=== PATIENT | female | born 1970 | race American Indian/Alaskan Native ===

== ENCOUNTER 2016-04-14 05:46 | Inpatient (IN) | payer SELFPAY ==
[2016-04-14 07:00] LABS: Basophils % (Auto) 0.5 % (0.0-1.8); Eosinophils % (Auto) 0.4 % (0.0-4.3); Mean Corpuscular HGB Conc 32 % (30-34); Mean Corpuscular Hemoglobin 31 pg (28-32); Mean Corpuscular Volume 96 fl (79-97); Platelet Count 336 K/mm3 (140-440); Red Blood Count 4.26 M/mm3 (3.65-5.03); Red Cell Distribution Width 13.2 % (13.2-15.2); White Blood Count 11.6 K/mm3 (4.5-11.0)
[2016-04-14 07:12] LABS: Blood Urea Nitrogen 9 mg/dL (7-17); Calcium 9.8 mg/dL (8.4-10.2); Carbon Dioxide 19 mmol/L (22-30); Chloride 81.5 mmol/L (98-107); Potassium 3.4 mmol/L (3.6-5.0); Sodium 128 mmol/L (137-145)
[2016-04-14 07:27] LABS: Anion Gap 31 mmol/L
[2016-04-14 07:28] LABS: Glucose 768 mg/dL (65-100)
--- NOTE | 2016-04-14 08:50 | XRay Report ---
CHEST 2 VIEWS INDICATION: Chest pain, shortness of breath. COMPARISON: 08/27/2015 FINDINGS: PA and lateral chest radiographs somewhat limited due to patient's inability to raise arms higher, though again reveals stable cardiomediastinal silhouette, clear lungs, unremarkable bones and cholecystectomy clips. CONCLUSION: No acute disease in the chest, stable. Thank you for the opportunity to participate in this patient's care.
[2016-04-14] MEDS ORDERED: ZOFRAN IV ONE (09:18)
[2016-04-14] MEDS ORDERED: DILAUDID IV ONE ×3 (09:18→13:59)
[2016-04-14] MEDS ORDERED: NACL 0.9% 1000 ML 1,000 ML IV ONE ×2 (09:18→11:13)
--- NOTE | 2016-04-14 09:23 | Emergency Department Report ---
ED General Adult HPI - General Chief complaint: Dyspnea/Respdistress Stated complaint: CP/SOB Time Seen by Provider: 04/14/16 09:06 Source: patient Mode of arrival: Ambulatory Limitations: No Limitations - History of Present Illness Initial comments: 46-year-old female presents to the emergency department complaining of chest pain and shortness of breath beginning yesterday. Patient describes sharp midsternal pain that does not radiate. Pain has been constant. She reports associated lightheadedness, nausea, and vomiting. There are no other complaints. -: Gradual, days(s) (1) Location: chest Radiation: non-radiation Severity scale (0 -10): 10 Quality: sharp Consistency: constant Improves with: none Worsens with: none Associated Symptoms: nausea/vomiting, shortness of breath Treatments Prior to Arrival: none - Related Data Home Medications Medication Instructions Recorded Confirmed Last Taken Insulin NPH Hum/Reg Insulin Hm 30 unit SQ QHS 08/27/15 08/27/15 08/27/15 [HumuLIN 70-30 Vial] Insulin NPH Hum/Reg Insulin Hm 40 unit SQ QAM 08/27/15 08/27/15 08/27/15 [HumuLIN 70-30 Vial] Lisinopril [Zestril TAB] 40 mg PO QDAY 08/27/15 08/27/15 08/27/15 Vesnoid BID 08/27/15 08/27/15 Previous Rx's Medication Instructions Recorded Last Taken Type HYDROcodone/APAP 5-325 [[place] 1 each PO Q6HR PRN #10 tablet 08/27/15 Unknown Rx 5/325] Oxycodone HCl/Acetaminophen 1 each PO Q6HR PRN #14 tablet 01/26/16 Unknown Rx [Percocet 10/325 mg] amLODIPine [Norvasc] 5 mg PO DAILY #30 tab 01/26/16 Unknown Rx Allergies Allergy/AdvReac Type Severity Reaction Status Date / Time ibuprofen Allergy Shortness Verified 08/27/15 11:08 of Breath tramadol Allergy Shortness Verified 08/27/15 11:08 of Breath cefaclor [From Ceclor] AdvReac Rash Verified 08/27/15 11:08 ED Review of Systems ROS: Stated complaint: CP/SOB Other details as noted in HPI Comment: All other systems reviewed and negative Respiratory: shortness of breath Cardiovascular: chest pain Gastrointestinal: nausea, vomiting ED Past Medical Hx - Past Medical History Previous Medical History?: Yes Hx Hypertension: Yes Hx Diabetes: Yes Additional medical history: AML - Surgical History Past Surgical History?: Yes Hx Appendectomy: Yes - Family History Family history: no significant - Social History Smoking Status: Never Smoker Substance Use Type: None - Medications Home Medications: Home Medications Medication Instructions Recorded Confirmed Last Taken Type HYDROcodone/APAP 5-325 [[place] 1 each PO Q6HR PRN #10 tablet 08/27/15 Unknown Rx 5/325] Insulin NPH Hum/Reg Insulin Hm 30 unit SQ QHS 08/27/15 08/27/15 08/27/15 History [HumuLIN 70-30 Vial] Insulin NPH Hum/Reg Insulin Hm 40 unit SQ QAM 08/27/15 08/27/15 08/27/15 History [HumuLIN 70-30 Vial] Lisinopril [Zestril TAB] 40 mg PO QDAY 08/27/15 08/27/15 08/27/15 History Vesnoid BID 08/27/15 08/27/15 History Oxycodone HCl/Acetaminophen 1 each PO Q6HR PRN #14 tablet 01/26/16 Unknown Rx [Percocet 10/325 mg] amLODIPine [Norvasc] 5 mg PO DAILY #30 tab 01/26/16 Unknown Rx ED Physical Exam - General Limitations: No Limitations General appearance: alert, in no apparent distress - Head Head exam: Present: atraumatic, normocephalic - Eye Eye exam: Present: normal appearance, PERRL, EOMI - ENT ENT exam: Present: normal exam, normal orophraynx, mucous membranes moist - Neck Neck exam: Present: normal inspection, full ROM. Absent: tenderness - Respiratory Respiratory exam: Present: normal lung sounds bilaterally. Absent: respiratory distress - Cardiovascular Cardiovascular Exam: Present: normal rhythm, tachycardia, normal heart sounds - GI/Abdominal GI/Abdominal exam: Present: soft, normal bowel sounds. Absent: distended, tenderness - Extremities Exam Extremities exam: Present: normal inspection, full ROM. Absent: tenderness - Back Exam Back exam: Present: normal inspection, full ROM. Absent: tenderness - Neurological Exam Neurological exam: Present: alert, oriented X3. Absent: motor sensory deficit - Skin Skin exam: Present: warm, dry, intact ED Course Vital Signs 04/14/16 04/14/16 04/14/16 05:57 09:08 09:14 Temperature 98.3 F 98.5 F Pulse Rate 103 H 102 H Respiratory 22 20 Rate Blood Pressure 125/82 Blood Pressure 151/101 [Right] O2 Sat by Pulse 99 100 100 Oximetry 04/14/16 04/14/16 04/14/16 09:15 10:00 10:21 Temperature Pulse Rate Respiratory 18 Rate Blood Pressure 153/92 135/94 Blood Pressure [Right] O2 Sat by Pulse 99 98 Oximetry ED Medical Decision Making - Lab Data Result diagrams: 04/14/16 06:38 04/14/16 06:38 - EKG Data -: EKG Interpreted by Ks EKG shows normal: sinus rhythm, axis, intervals Rate: normal - EKG Data When compared to previous EKG there are: no significant change Interpretation: unchanged when compared t (01/26/2016), nonspecific ST-T wave vega, LVH - Radiology Data Radiology results: report reviewed Chest x-ray shows no acute cardiopulmonary abnormality. - Medical Decision Making Lab and imaging results reviewed and discussed with the patient. Patient is being started on IV insulin drip for DKA. Patient is to be admitted by the hospitalist. - Differential Diagnosis ACS, chest wall pain, dehydration, electrolyte abnormality Critical care attestation.: If time is entered above; I have spent that time in minutes in the direct care of this critically ill patient, excluding procedure time. ED Disposition Clinical Impression: DKA (diabetic ketoacidosis) Qualifiers: Diabetes mellitus type: type 2 Diabetes mellitus complication detail: without coma Qualified Code(s): E13.10 - Other specified diabetes mellitus with ketoacidosis without coma Disposition: OP ADMITTED IP TO THIS HOSP Is pt being admited?: Yes Condition: Stable Instructions: Diabetic Ketoacidosis (ED) Time of Disposition: 11:16
[2016-04-14 09:46] LABS: Bilirubin,Urine NEG (Negative); Blood,Urine LG (Negative); Ketones,Urine 80 mg/dL (Negative); Leukocyte Esterase,Urine NEG (Negative); Mucus,Urine FEW /HPF; Nitrite,Urine NEG (Negative); Protein,Urine <15 mg/dL mg/dL (Negative); Urobilinogen,Urine < 2.0 mg/dL (<2.0)
[2016-04-14] MEDS ORDERED: D50W (25GM) IV PRN ×2 (11:13→21:02)
--- NOTE | 2016-04-14 11:40 | Admit Criteria Form ---
Admission Criteria Documentation: DIABETES Clinical Indications for Admission to Inpatient Care (Place 'X' for any and all applicable criteria): Admission is indicated by presence of ALL (if I & II) or ANY ONE (if III or IV) of the following (1)(2)(3)(4): [X ]I. Diabetes is uncontrolled as indicated by ANY ONE of the following: [X ]a) Diabetic ketoacidosis as indicated by ALL of the following (8): [X ]i) Hyperglycemia (eg, plasma glucose greater than 200 mg /dL (11.1 mmol/L)) [ X]ii) Acidosis (eg, arterial pH less than 7.30, serum bicarbonate level less than 15 mEq/L (mmol/L)) [X ]iii) Moderate ketonuria or ketonemia [ ]b) Hyperglycemic hyperosmolar state as indicated by ALL of the following(9)(10): [ ]i) Neurologic dysfunction (eg, stupor, coma, hemiparesis , seizure)(13) [ ]ii) Plasma glucose greater than 600 mg/dL (33.3 mmol/L) [ ]iii) Serum osmolality greater than 320 mOsm/kg (mmol/kg) [ X]c) Severe signs or symptoms secondary to hyperglycemia indicated by ANY ONE of the following: [ ]i) Altered mental status(10) [ ]ii) Significant hypovolemia or dehydration [ ]iii) Intractable nausea or vomiting [ ]iv) Unexplained fever or severe infection [X]v) Severe electrolyte abnormality (eg, hypokalemia, hyperkalemia, hypernatremia) [X ]II. Management at other levels of care (Also use Diabetes: Observation Care as appropriate) is not feasible because of ANY ONE of the following: [ X]a) Condition was not adequately corrected with treatment at other levels of care. [ ]b) Treatment at other levels of care is not appropriate because of condition severity (eg, hyperosmolar coma). [ ]III. Contraindications and/or Inappropriate clinical situations for Observational Care in patients with Diabetes, when ANY ONE of the following is required: [ ]a) Patient require specific diagnostic workup or therapeutic intervention 22 [ ]b) Patient with abnormal vital signs or altered mental status 23 [ ]IV. General contraindications and/or Inappropriate clinical situations for Observational Care in patients with Diabetes, when ANY ONE of the following is required: [ ]a) Prediction of prolongation of LOS based on ANY ONE of the following may be considered as a contraindication for observational care 2, 3, 4, 5, 6, 7, 8, 9, 10, 11 [ ]i) Age > 65 yrs. [ ]ii) Patient arriving by ambulance [ ]iii) Patient with high acuity [ ]iv) Patient requiring vital sign monitoring [ ]v) Patient on IV medication [ ]b) Systolic blood pressures 180mmHg 3,12 [ ]c) Patient with altered mental status including delirium and other alteration of consciousness, (3) [ ]d) Patient whose discharge disposition will be to a longterm home or rehabilitation home should not be managed in Emergency Department Observation Unit. CMS rule requires 3 days hospital stay before such placement.3,13 [ ]e) Patient with failure to thrive due to broad array of etiologies 3,16,17 [ ]f) Inability to ambulate 3,14 Extended stay beyond goal length of stay may be needed for(3)(20): [ ]a) Treatment of precipitating causes [ ]b) Development of hypoglycemia [ ]c) Complications of treatment [ ]d) Complications of decompensated diabetes (eg, acute gastric dilatation, persistent metabolic or neurologic derangement) [ ]e) Active Comorbidities [ ]f) Older patients( 65 years or older) The original [facility] content created by [employer] has been revised. The portions of the content which have been revised are identified through the use of italic text or in bold,and [email or web address] has neither reviewed nor approved the modified material. All other unmodified content is copyright [email or web address]. Please see references footnoted in the original [facility] edition 2016 Admission Criteria Met: Yes
--- NOTE | 2016-04-14 11:57 | History and Physical Report ---
History of Present Illness Date of examination: 04/14/16 Date of admission: 04/14/16 Chief complaint: chest pain, epigastric pain, nausea,vomiting History of present illness: Pt is 46nyo presented with chest pain, epigastric pain, nausea, vomiting. Found to have DKA Medications and Allergies Allergies Allergy/AdvReac Type Severity Reaction Status Date / Time ibuprofen Allergy Shortness Verified 08/27/15 11:08 of Breath tramadol Allergy Shortness Verified 08/27/15 11:08 of Breath cefaclor [From Ceclor] AdvReac Rash Verified 08/27/15 11:08 Home Medications Medication Instructions Recorded Confirmed Last Taken Type Insulin NPH Hum/Reg Insulin Hm 30 unit SQ QHS 08/27/15 04/14/16 08/27/15 History [HumuLIN 70-30 Vial] Insulin NPH Hum/Reg Insulin Hm 40 unit SQ QAM 08/27/15 04/14/16 08/27/15 History [HumuLIN 70-30 Vial] Lisinopril [Zestril TAB] 40 mg PO BID 08/27/15 04/14/16 08/27/15 History Vesnoid BID 08/27/15 08/27/15 History Oxycodone HCl/Acetaminophen 1 each PO Q6HR PRN #14 tablet 01/26/16 04/14/16 Unknown Rx [Percocet 10/325 mg] amLODIPine [Norvasc] 5 mg PO DAILY #30 tab 01/26/16 04/14/16 Unknown Rx Active Meds: Active Medications Dextrose (D50w (25gm)) 0 ml IV PRN PRN PRN Reason: Hypoglycemia Insulin Human Regular 100 (units/ Sodium Chloride) 100 mls @ 1 mls/hr IV TITR YONI; 1 UNITS/HR PRN Reason: Protocol Sodium Chloride (Nacl 0.9% 1000 Ml) 1,000 mls @ 999 mls/hr IV ONCE ONE Stop: 04/14/16 12:13 Last Admin: 04/14/16 11:40 Dose: 999 mls/hr Exam - Constitutional Vitals: Temp Pulse Resp BP Pulse Ox 98.5 F 102 H 18 135/94 98 04/14/16 09:14 04/14/16 09:14 04/14/16 10:21 04/14/16 10:00 04/14/16 10:21 Results - Labs CBC & Chem 7: 04/14/16 06:38 04/14/16 18:02 Labs: Abnormal lab results 04/14/16 04/14/16 04/14/16 Range/Units 06:38 06:38 09:11 WBC 11.6 H (4.5-11.0) K/mm3 Sodium 128 L (137-145) mmol/L Potassium 3.4 L (3.6-5.0) mmol/L Chloride 81.5 L (98-107) mmol/L Carbon Dioxide 19 L (22-30) mmol/L Glucose 768 H* (65-100) mg/dL Ketones 58.9 H (0.2-2.8) mg/dL Assessment and Plan DKA. Admit to ICU. Insulin drip, iv fluids Chest pain, atypical. cardiologyy consulted
[2016-04-14] MEDS ORDERED: NovoLIN R 100 UNITS in NACL 0.9% 99 ML IV SCH (12:00)
[2016-04-14 12:15] LABS: Magnesium 1.9 mg/dL (1.7-2.3); Phosphorous 2.4 mg/dL (2.5-4.5)
[2016-04-14 14:07] LABS: Blood Urea Nitrogen 8 mg/dL (7-17); Calcium 9.8 mg/dL (8.4-10.2); Carbon Dioxide 18 mmol/L (22-30); Sodium 132 mmol/L (137-145)
[2016-04-14 14:08] LABS: Anion Gap 30 mmol/L; Glucose 501 mg/dL (65-100)
[2016-04-14 14:10] LABS: Potassium 2.9 mmol/L (3.6-5.0)
[2016-04-14] MEDS ORDERED: SODIUM PHOSPHATE 30 MMOL in NACL 0.9% 500 ML 500 ML IV ONE (14:10)
--- NOTE | 2016-04-14 14:49 | Consultation ---
History of Present Illness Consult date: 04/14/16 Requesting physician: CHAD LINCOLN Consult reason: chest pain History of present illness: The patient is a 46 year old female who presented with chest pain ongoing for the past 3 days. She states the pain has been constant and describes it as a sharp pain as well as tightness. Associated with shortness of breath, palpitations, nausea, vomiting, diaphoresis and headache. Upon presentation to the ER, she was found to be in DKA with a blood glucose of 768. Troponin negative x 2. Cardiac PET done 02/2016 showed was negative for reversible ischemia. Echo done 02/2016 showed EF 60-65%. Past History Past Medical History: diabetes, hypertension, other (leukemia s/p chemo) Past Surgical History: appendectomy, cholecystectomy, hernia repair Social history: (3 children). denies: smoking, alcohol abuse, prescription drug abuse, IV drug use Family history: no significant family history Medications and Allergies Allergies Allergy/AdvReac Type Severity Reaction Status Date / Time ibuprofen Allergy Shortness Verified 08/27/15 11:08 of Breath tramadol Allergy Shortness Verified 08/27/15 11:08 of Breath cefaclor [From Ceclor] AdvReac Rash Verified 08/27/15 11:08 Home Medications Medication Instructions Recorded Confirmed Last Taken Type Insulin NPH Hum/Reg Insulin Hm 30 unit SQ QHS 08/27/15 04/14/16 08/27/15 History [HumuLIN 70-30 Vial] Insulin NPH Hum/Reg Insulin Hm 40 unit SQ QAM 08/27/15 04/14/16 08/27/15 History [HumuLIN 70-30 Vial] Lisinopril [Zestril TAB] 40 mg PO BID 08/27/15 04/14/16 08/27/15 History Vesnoid BID 08/27/15 08/27/15 History Oxycodone HCl/Acetaminophen 1 each PO Q6HR PRN #14 tablet 01/26/16 04/14/16 Unknown Rx [Percocet 10/325 mg] amLODIPine [Norvasc] 5 mg PO DAILY #30 tab 01/26/16 04/14/16 Unknown Rx Active Meds: Active Medications Dextrose (D50w (25gm)) 0 ml IV PRN PRN PRN Reason: Hypoglycemia Insulin Human Regular 100 (units/ Sodium Chloride) 100 mls @ 1 mls/hr IV TITR YONI; 1 UNITS/HR PRN Reason: Protocol Last Titration: 04/14/16 14:08 Dose: 5 units/hr Sodium Phosphate 30 mmol/ (Sodium Chloride) 510 mls @ 125 mls/hr IV ONCE ONE Stop: 04/14/16 18:14 Potassium Chloride/Sodium Chloride (Ns/Kcl 20meq) 1,000 mls @ 150 mls/hr IV DIRECT YONI Review of Systems Constitutional: no fever, no chills Ears, nose, mouth and throat: no nasal congestion, no nasal discharge, no sinus pressure Cardiovascular: chest pain, palpitations, shortness of breath Respiratory: shortness of breath, dyspnea on exertion, no wheezing Gastrointestinal: abdominal pain, nausea, vomiting Genitourinary Female: no dysuria, no urgency Musculoskeletal: no neck stiffness, no neck pain, no myalgias Integumentary: no rash, no pruritis Neurological: headaches, no parathesias, no numbness, no tingling Endocrine: no cold intolerance, no heat intolerance Hematologic/Lymphatic: no easy bruising, no easy bleeding Allergic/Immunologic: no urticaria, no wheezing Physical Examination Vital Signs Temp Pulse Resp BP Pulse Ox 98.3 F 103 H 22 125/82 99 04/14/16 05:57 04/14/16 05:57 04/14/16 05:57 04/14/16 05:57 04/14/16 05:57 General appearance: no acute distress HEENT: Positive: Normocephaly, Mucus Membranes Moist Neck: Positive: neck supple, trachea midline Cardiac: Positive: Reg Rate and Rhythm, S1/S2 Lungs: Positive: clear to auscultation Neuro: Positive: Grossly Intact Abdomen: Positive: Soft, Active Bowel Sounds, Tender (epigastic tenderness) Skin: Positive: Clear. Negative: Rash Musculoskeletal: other (reproducible anterior chest tenderness) Extremities: Present: normal. Absent: edema Results 04/14/16 06:38 04/14/16 15:50 Comprehensive Metabolic Panel 04/14/16 Range/Units 13:50 Sodium 132 L (137-145) mmol/L Potassium 2.9 L* (3.6-5.0) mmol/L Chloride 87.0 L (98-107) mmol/L Carbon Dioxide 18 L (22-30) mmol/L BUN 8 (7-17) mg/dL Creatinine 0.8 (0.7-1.2) mg/dL Glucose 501 H* (65-100) mg/dL Calcium 9.8 (8.4-10.2) mg/dL - Imaging and Cardiology Echo: report reviewed (02/2016: mild LVH, EF 60-65%, mild MR) EKG: image reviewed EKG interpretations - Telemetry EKG Rhythm: Sinus Rhythm - EKG Sinus rhythms and dysrhythmias: sinus rhythm Chamber hypertrophy or enlargement: left ventricular hypertro Repolarization changes or abnormalities: ST or T wave suggestive of ischemia Assessment and Plan Given atypical nature of chest pain and some reproducible component, as well as recent negative stress test, will give a trial of analgesics (pt. is allergic to NSAIDS). If chest pain persists despite that, we will consider invasive evaluation. - Patient Problems (1) Atypical chest pain Current Visit: Yes Status: Acute (2) DKA (diabetic ketoacidosis) Current Visit: Yes Status: Acute Qualifiers: Diabetes mellitus type: type 2 Diabetes mellitus complication detail: without coma Qualified Code(s): E13.10 - Other specified diabetes mellitus with ketoacidosis without coma (3) Hypertension Current Visit: Yes Status: Chronic
[2016-04-14] MEDS ORDERED: NS/KCL 20MEQ 1,000 ML IV SCH (15:00)
[2016-04-14] MEDS: D5W/0.45% NACL/KCL 20 MEQ 1,000 ML IV SCH (15:39)
[2016-04-14 16:26] LABS: Anion Gap 22 mmol/L; Blood Urea Nitrogen 7 mg/dL (7-17); Calcium 9.1 mg/dL (8.4-10.2); Carbon Dioxide 22 mmol/L (22-30); Chloride 95.7 mmol/L (98-107); Glucose 205 mg/dL (65-100); Sodium 137 mmol/L (137-145)
[2016-04-14 16:30] LABS: Potassium 2.5 mmol/L (3.6-5.0)
[2016-04-14] MEDS: KCL 10MEQ/100ML 100 ML IV SCH ×4 (16:51→21:54)
[2016-04-14] MEDS: ZOFRAN IV PRN (17:28)
[2016-04-14] MEDS: MORPHINE IV PRN ×2 (17:29→21:56)
[2016-04-14] MEDS: PEPCID IV SCH ×2 (17:30→21:53)
[2016-04-14] MEDS: TYLENOL PO SCH (17:30)
[2016-04-14 18:50] LABS: Anion Gap 23 mmol/L; BUN/Creatinine Ratio 11.66; Blood Urea Nitrogen 7 mg/dL (7-17); Calcium 8.7 mg/dL (8.4-10.2); Carbon Dioxide 22 mmol/L (22-30); Chloride 96.3 mmol/L (98-107); Glucose 185 mg/dL (65-100); Sodium 138 mmol/L (137-145)
[2016-04-14 18:55] LABS: Potassium 2.8 mmol/L (3.6-5.0)
[2016-04-14 21:32] LABS: Anion Gap 22 mmol/L; Blood Urea Nitrogen 6 mg/dL (7-17); Calcium 8.7 mg/dL (8.4-10.2); Carbon Dioxide 22 mmol/L (22-30); Chloride 95.4 mmol/L (98-107); Glucose 182 mg/dL (65-100); Sodium 136 mmol/L (137-145)
[2016-04-15] MEDS: D5W/0.45% NACL/KCL 20 MEQ 1,000 ML IV SCH (00:07)
[2016-04-15] MEDS: NOVOLOG SUB-Q SCH ×4 (00:24→18:06)
[2016-04-15] MEDS: ZOFRAN IV PRN ×4 (00:26→20:07)
[2016-04-15 05:03] LABS: Hemoglobin 12.1 gm/dl (10.1-14.3); Mean Corpuscular HGB Conc 33 % (30-34); Mean Corpuscular Hemoglobin 31 pg (28-32); Mean Corpuscular Volume 93 fl (79-97); Platelet Count 236 K/mm3 (140-440); Red Blood Count 3.97 M/mm3 (3.65-5.03); Red Cell Distribution Width 12.8 % (13.2-15.2); White Blood Count 8.8 K/mm3 (4.5-11.0)
[2016-04-15 05:34] LABS: Anion Gap 19 mmol/L; BUN/Creatinine Ratio 6.66; Blood Urea Nitrogen 4 mg/dL (7-17); Calcium 8.7 mg/dL (8.4-10.2); Carbon Dioxide 25 mmol/L (22-30); Chloride 94.1 mmol/L (98-107); Glucose 263 mg/dL (65-100); Potassium 3.2 mmol/L (3.6-5.0); Sodium 135 mmol/L (137-145)
[2016-04-15] MEDS: HEPARIN SUB-Q SCH ×4 (06:08→21:51)
[2016-04-15] MEDS: MORPHINE IV PRN ×4 (06:09→20:07)
--- NOTE | 2016-04-15 08:52 | Progress Note ---
Hospitalist Physical - Constitutional Vitals: Temp Pulse Resp BP Pulse Ox 98.4 F 87 18 138/90 98 04/15/16 08:00 04/15/16 04:12 04/14/16 20:00 04/14/16 13:30 04/15/16 08:24 General appearance: Present: no acute distress Results - Labs CBC & Chem 7: 04/15/16 04:37 04/15/16 04:37 Labs: Laboratory Last Values WBC 8.8 K/mm3 (4.5-11.0) 04/15/16 04:37 RBC 3.97 M/mm3 (3.65-5.03) 04/15/16 04:37 Hgb 12.1 gm/dl (10.1-14.3) 04/15/16 04:37 Hct 37.0 % (30.3-42.9) 04/15/16 04:37 MCV 93 fl (79-97) D 04/15/16 04:37 MCH 31 pg (28-32) 04/15/16 04:37 MCHC 33 % (30-34) 04/15/16 04:37 RDW 12.8 % (13.2-15.2) L 04/15/16 04:37 Plt Count 236 K/mm3 (140-440) 04/15/16 04:37 Lymph % (Auto) 26.8 % (13.4-35.0) 04/14/16 06:38 [place] % (Auto) 7.1 % (0.0-7.3) 04/14/16 06:38 Eos % (Auto) 0.4 % (0.0-4.3) 04/14/16 06:38 Baso % (Auto) 0.5 % (0.0-1.8) 04/14/16 06:38 Lymph # 3.1 K/mm3 (1.2-5.4) 04/14/16 06:38 [place] # 0.8 K/mm3 (0.0-0.8) 04/14/16 06:38 Eos # 0.0 K/mm3 (0.0-0.4) 04/14/16 06:38 Baso # 0.1 K/mm3 (0.0-0.1) 04/14/16 06:38 Seg Neutrophils % 65.2 % (40.0-70.0) 04/14/16 06:38 Seg Neutrophils # 7.5 K/mm3 (1.8-7.7) 04/14/16 06:38 VBG pH 7.369 (7.320-7.420) 04/14/16 09:11 Sodium 135 mmol/L (137-145) L 04/15/16 04:37 Potassium 3.2 mmol/L (3.6-5.0) L 04/15/16 04:37 Chloride 94.1 mmol/L (98-107) L 04/15/16 04:37 Carbon Dioxide 25 mmol/L (22-30) 04/15/16 04:37 Anion Gap 19 mmol/L 04/15/16 04:37 BUN 4 mg/dL (7-17) L 04/15/16 04:37 Creatinine 0.6 mg/dL (0.7-1.2) L 04/15/16 04:37 Estimated GFR > 60 ml/min 04/15/16 04:37 BUN/Creatinine Ratio 6.66 % 04/15/16 04:37 Glucose 263 mg/dL (65-100) H 04/15/16 04:37 POC Glucose 244 (70-105) H 04/15/16 07:58 Calcium 8.7 mg/dL (8.4-10.2) 04/15/16 04:37 Phosphorus 2.0 mg/dL (2.5-4.5) L 04/15/16 04:37 Magnesium 1.9 mg/dL (1.7-2.3) 04/14/16 11:50 Troponin T < 0.010 ng/mL (0.00-0.029) 04/14/16 11:50 Urine Color Straw (Yellow) 04/14/16 09:20 Urine Turbidity Clear (Clear) 04/14/16 09:20 Urine pH 6.0 (5.0-7.0) 04/14/16 09:20 Ur Specific [place] 1.028 (1.003-1.030) 04/14/16 09:20 Urine Protein <15 mg/dl mg/dL (Negative) 04/14/16 09:20 Urine Glucose (UA) >=500 mg/dL (Negative) 04/14/16 09:20 Urine Ketones 80 mg/dL (Negative) 04/14/16 09:20 Urine Blood Lg (Negative) 04/14/16 09:20 Urine Nitrite Neg (Negative) 04/14/16 09:20 Urine Bilirubin Neg (Negative) 04/14/16 09:20 Urine Urobilinogen < 2.0 mg/dL (<2.0) 04/14/16 09:20 Ur Leukocyte Esterase Neg (Negative) 04/14/16 09:20 Urine WBC (Auto) 6.0 /HPF (0.0-6.0) 04/14/16 09:20 Urine RBC (Auto) 108.0 /HPF (0.0-6.0) 04/14/16 09:20 U Epithel Cells (Auto) 1.0 /HPF (0-13.0) 04/14/16 09:20 Urine Mucus Few /HPF 04/14/16 09:20 Ketones 58.9 mg/dL (0.2-2.8) H 04/14/16 09:11
[2016-04-15] MEDS ORDERED: K-DUR PO ONE (09:00)
[2016-04-15] MEDS: TYLENOL PO SCH ×5 (09:06→22:01)
[2016-04-15] MEDS: NORVASC PO SCH (09:06)
[2016-04-15] MEDS: PEPCID PO SCH ×2 (09:06→21:50)
[2016-04-15] MEDS: ZESTRIL PO SCH (09:17)
--- NOTE | 2016-04-15 11:02 | Progress Note ---
Assessment and Plan Continue analgesics. Will optimize anti-hypertensive regimen. Stable cardiac status. - Patient Problems (1) Atypical chest pain Current Visit: Yes Status: Acute (2) DKA (diabetic ketoacidosis) Current Visit: Yes Status: Acute Qualifiers: Diabetes mellitus type: type 2 Diabetes mellitus complication detail: without coma Qualified Code(s): E13.10 - Other specified diabetes mellitus with ketoacidosis without coma (3) Hypertension Current Visit: Yes Status: Chronic Subjective Date of service: 04/15/16 Principal diagnosis: atypical chest pain, DKA Interval history: The patient is resting in bed. She feels better today. Still with some substernal chest pain which is reproducible. Objective Last Vital Signs Temp 98.4 F 04/15/16 08:00 Pulse 69 04/15/16 09:17 Resp 18 04/14/16 20:00 BP 154/96 04/15/16 09:17 Pulse Ox 98 04/15/16 08:24 - Physical Examination General: No Apparent Distress HEENT: Positive: Normocephaly, Mucus Membranes Moist Neck: Positive: neck supple, trachea midline Cardiac: Positive: Reg Rate and Rhythm, S1/S2 Lungs: Positive: clear to auscultation Neuro: Positive: Grossly Intact Abdomen: Positive: Soft, Active Bowel Sounds, Tender (epigastic tenderness) Skin: Positive: Clear. Negative: Rash Musculoskeletal: other (reproducible anterior chest tenderness) Extremities: Present: normal. Absent: edema - Labs and Meds CBC 04/15/16 Range/Units 04:37 WBC 8.8 (4.5-11.0) K/mm3 RBC 3.97 (3.65-5.03) M/mm3 Hgb 12.1 (10.1-14.3) gm/dl Hct 37.0 (30.3-42.9) % Plt Count 236 (140-440) K/mm3 Comprehensive Metabolic Panel 04/14/16 04/14/16 04/14/16 Range/Units 13:50 15:50 18:02 Sodium 132 L 137 138 (137-145) mmol/L Potassium 2.9 L* 2.5 L* 2.8 L* (3.6-5.0) mmol/L Chloride 87.0 L 95.7 L 96.3 L (98-107) mmol/L Carbon Dioxide 18 L 22 22 (22-30) mmol/L BUN 8 7 7 (7-17) mg/dL Creatinine 0.8 0.7 0.6 L (0.7-1.2) mg/dL Glucose 501 H* 205 H 185 H (65-100) mg/dL Calcium 9.8 9.1 8.7 (8.4-10.2) mg/dL 04/14/16 04/15/16 Range/Units 20:55 04:37 Sodium 136 L 135 L (137-145) mmol/L Potassium 3.0 L 3.2 L (3.6-5.0) mmol/L Chloride 95.4 L 94.1 L (98-107) mmol/L Carbon Dioxide 22 25 (22-30) mmol/L BUN 6 L 4 L (7-17) mg/dL Creatinine 0.6 L 0.6 L (0.7-1.2) mg/dL Glucose 182 H 263 H (65-100) mg/dL Calcium 8.7 8.7 (8.4-10.2) mg/dL - Imaging and Cardiology EKG: image reviewed Echo: report reviewed (02/2016: mild LVH, EF 60-65%, mild MR) - Telemetry EKG Rhythm: Sinus Rhythm - EKG Sinus rhythms and dysrhythmias: sinus rhythm Chamber hypertrophy or enlargement: left ventricular hypertro Repolarization changes or abnormalities: ST or T wave suggestive of ischemia
[2016-04-15] MEDS: KCL IV SCH (12:27)
[2016-04-15] MEDS: NS IV SCH (12:27)
[2016-04-15] MEDS ORDERED: SODIUM PHOSPHATE 45 MMOL in NACL 0.9% 500 ML 500 ML IV ONE (16:00)
[2016-04-15] MEDS ORDERED: NOVOLOG SUB-Q ONE (18:14)
[2016-04-15 21:22] LABS: Anion Gap 20 mmol/L; Blood Urea Nitrogen 3 mg/dL (7-17); Calcium 8.6 mg/dL (8.4-10.2); Carbon Dioxide 23 mmol/L (22-30); Chloride 99.5 mmol/L (98-107); Glucose 285 mg/dL (65-100); Sodium 138 mmol/L (137-145)
[2016-04-16] MEDS: ZOFRAN IV PRN ×3 (00:13→08:44)
[2016-04-16] MEDS: MORPHINE IV PRN ×3 (00:13→08:44)
[2016-04-16] MEDS: NOVOLOG SUB-Q SCH ×3 (00:14→13:38)
[2016-04-16] MEDS: NS IV SCH (05:15)
[2016-04-16] MEDS: KCL IV SCH (05:15)
[2016-04-16] MEDS: HEPARIN SUB-Q SCH ×2 (05:16→13:38)
[2016-04-16] MEDS: TYLENOL PO SCH ×2 (05:16→13:37)
[2016-04-16 06:40] LABS: Anion Gap 16 mmol/L; Blood Urea Nitrogen 3 mg/dL (7-17); Calcium 8.7 mg/dL (8.4-10.2); Carbon Dioxide 28 mmol/L (22-30); Chloride 103.2 mmol/L (98-107); Glucose 163 mg/dL (65-100); Phosphorous 4.1 mg/dL (2.5-4.5); Potassium 3.5 mmol/L (3.6-5.0); Sodium 144 mmol/L (137-145)
[2016-04-16 08:49] VITALS: BP 133/81
[2016-04-16] MEDS: ZESTRIL PO SCH (10:25)
[2016-04-16] MEDS: PEPCID PO SCH (10:25)
[2016-04-16] MEDS: NORVASC PO SCH (10:25)
--- NOTE | 2016-04-16 12:02 | Progress Note ---
Assessment and Plan Stable cardiac status. Continue current management. Follow up appointment with Dr. Faulkner in the [place] office on 04/28/16 at 1: 45 pm. - Patient Problems (1) Atypical chest pain Current Visit: Yes Status: Acute (2) DKA (diabetic ketoacidosis) Current Visit: Yes Status: Acute Qualifiers: Diabetes mellitus type: type 2 Diabetes mellitus complication detail: without coma Qualified Code(s): E13.10 - Other specified diabetes mellitus with ketoacidosis without coma (3) Hypertension Current Visit: Yes Status: Chronic Subjective Date of service: 04/16/16 Principal diagnosis: atypical chest pain, DKA Interval history: The patient is resting in bed. Chest pain better today. Sinus rhythm on the monitor. Objective Last Vital Signs Temp 97.6 F 04/16/16 08:48 Pulse 67 04/16/16 08:48 Resp 18 04/16/16 08:48 BP 133/81 04/16/16 08:48 Pulse Ox 100 04/16/16 08:48 - Physical Examination General: No Apparent Distress HEENT: Positive: Normocephaly, Mucus Membranes Moist Neck: Positive: neck supple, trachea midline Cardiac: Positive: Reg Rate and Rhythm, S1/S2 Lungs: Positive: clear to auscultation Neuro: Positive: Grossly Intact Abdomen: Positive: Soft, Active Bowel Sounds, Tender (epigastic tenderness) Skin: Positive: Clear. Negative: Rash Musculoskeletal: other (reproducible anterior chest tenderness) Extremities: Present: normal. Absent: edema - Labs and Meds Comprehensive Metabolic Panel 04/15/16 04/16/16 Range/Units 20:34 05:26 Sodium 138 144 (137-145) mmol/L Potassium 4.0 D 3.5 L (3.6-5.0) mmol/L Chloride 99.5 103.2 (98-107) mmol/L Carbon Dioxide 23 28 (22-30) mmol/L BUN 3 L 3 L (7-17) mg/dL Creatinine 0.5 L 0.5 L (0.7-1.2) mg/dL Glucose 285 H 163 H (65-100) mg/dL Calcium 8.6 8.7 (8.4-10.2) mg/dL - Imaging and Cardiology EKG: image reviewed Echo: report reviewed (02/2016: mild LVH, EF 60-65%, mild MR) - Telemetry EKG Rhythm: Sinus Rhythm - EKG Sinus rhythms and dysrhythmias: sinus rhythm Chamber hypertrophy or enlargement: left ventricular hypertro Repolarization changes or abnormalities: ST or T wave suggestive of ischemia
--- NOTE | 2016-04-16 14:27 | Discharge Summary ---
Providers - Providers Date of Admission: 04/14/16 11:17 Date of discharge: 04/16/16 Attending physician: CHAD LINCOLN 04/14/16 12:37 Consult to Physician [CONS] Routine Consulting Provider: [facility] FAULK[facility] Reason For Exam: chest pain Place consult to:: Dr. Faulkner Notified:: yes If yes, spoke with:: osmin Primary care physician: [employer] Hospitalization Condition: Fair Disposition: DISCHARGED TO HOME OR SELFCARE - Discharge Diagnoses (1) DKA (diabetic ketoacidosis) Status: Acute Qualifiers: Diabetes mellitus type: type 2 Diabetes mellitus complication detail: without coma Qualified Code(s): E13.10 - Other specified diabetes mellitus with ketoacidosis without coma (2) Atypical chest pain Status: Acute (3) Hypertensive urgency Status: Acute (4) GERD (gastroesophageal reflux disease) Status: Acute Core Measure Documentation - Palliative Care Palliative Care/ Comfort Measures: Not Applicable - Core Measures Any of the following diagnoses?: none Exam - Constitutional Vitals: Temp Pulse Resp BP Pulse Ox 97.6 F 67 18 133/81 100 04/16/16 08:48 04/16/16 08:48 04/16/16 08:48 04/16/16 08:48 04/16/16 08:48 Plan Activity: no restrictions Diet: low fat, low cholesterol, low salt, diabetic Additional Instructions: 1.Follow up with PCP in 1 week. 2.Follow up with Dr. Faulkner on 04/28/16 Follow up with: PRIMARY CARE, [Primary Care Provider] - 3-5 Days Prescriptions: Famotidine [Pepcid] 20 mg PO BID #60 tablet Insulin NPH Hum/Reg Insulin Hm [HumuLIN 70-30 Vial] 40 unit SQ BID #1 vial Oxycodone HCl/Acetaminophen [Percocet 10/325 mg] 1 each PO Q6HR PRN #14 tablet PRN Reason: Pain
== END 2016-04-16 16:00 | disposition home or self-care (01) | DRG 638 ==
LOC: ED 05:46 → CC1 11:17 → 4A 04-15 14:42
PROVIDERS: ADMIT Internal Medicine; ATTEND Internal Medicine
DX: E13.10 Other specified diabetes mellitus with ketoacidosis without coma (principal); C95.90 Leukemia, unspecified not having achieved remission; I10 Essential (primary) hypertension; Z90.89 Acquired absence of other organs; Z90.49 Acquired absence of other specified parts of digestive tract; Z98.890 Other specified postprocedural states; Z88.8 Allergy status to other drugs, medicaments and biological substances; Z88.1 Allergy status to other antibiotic agents; Z92.21 Personal history of antineoplastic chemotherapy; K21.9 Gastro-esophageal reflux disease without esophagitis
CPT/HCPCS: 36415; 71020; 80048; 81001; 82010; 82805; 82962; 83036; 83735; 84100; 84484; 85025; 85027; 93005; 93010; 96361; 96374; 96375; 96376; J1170; J1644; J1815; J2270; J2405; J3480; J7030; J7040

== ENCOUNTER 2017-03-18 18:30 | Emergency (ER) | payer OTHER ==
--- NOTE | 2017-03-18 22:50 | Emergency Department Report ---
ED ENT HPI - General Chief complaint: Earache Stated complaint: EAR PAIN Time Seen by Provider: 03/18/17 21:55 Source: patient Mode of arrival: Ambulatory Limitations: No Limitations - Related Data Home Medications Medication Instructions Recorded Confirmed Last Taken Insulin NPH Hum/Reg Insulin Hm 30 unit SQ QHS 08/27/15 04/14/16 08/27/15 [HumuLIN 70-30 Vial] Insulin NPH Hum/Reg Insulin Hm 40 unit SQ QAM 08/27/15 04/14/16 08/27/15 [HumuLIN 70-30 Vial] Lisinopril [Zestril TAB] 40 mg PO BID 08/27/15 04/14/16 08/27/15 Vesnoid BID 08/27/15 08/27/15 Previous Rx's Medication Instructions Recorded Last Taken Type Oxycodone HCl/Acetaminophen 1 each PO Q6HR PRN #14 tablet 01/26/16 Unknown Rx [Percocet 10/325 mg] amLODIPine [Norvasc] 5 mg PO DAILY #30 tab 01/26/16 Unknown Rx Famotidine [Pepcid] 20 mg PO BID #60 tablet 04/16/16 Unknown Rx Insulin NPH Hum/Reg Insulin Hm 40 unit SQ BID #1 vial 04/16/16 Unknown Rx [HumuLIN 70-30 Vial] Oxycodone HCl/Acetaminophen 1 each PO Q6HR PRN #14 tablet 04/16/16 Unknown Rx [Percocet 10/325 mg] Allergies Allergy/AdvReac Type Severity Reaction Status Date / Time ibuprofen Allergy Shortness Verified 08/27/15 11:08 of Breath ketorolac [From Toradol] Allergy Unknown Verified 03/18/17 21:42 tramadol Allergy Shortness Verified 08/27/15 11:08 of Breath cefaclor [From Ceclor] AdvReac Rash Verified 08/27/15 11:08 ED Dental HPI - General Chief complaint: Earache Stated complaint: EAR PAIN Time Seen by Provider: 03/18/17 21:55 Source: patient Mode of arrival: Ambulatory Limitations: No Limitations - Related Data Home Medications Medication Instructions Recorded Confirmed Last Taken Insulin NPH Hum/Reg Insulin Hm 30 unit SQ QHS 08/27/15 04/14/16 08/27/15 [HumuLIN 70-30 Vial] Insulin NPH Hum/Reg Insulin Hm 40 unit SQ QAM 08/27/15 04/14/1616 [HumuLIN 70-30 Vial] Lisinopril [Zestril TAB] 40 mg PO BID 08/27/15 04/14/16 08/27/15 Vesnoid BID 08/27/15 08/27/15 Previous Rx's Medication Instructions Recorded Last Taken Type Oxycodone HCl/Acetaminophen 1 each PO Q6HR PRN #14 tablet 01/26/16 Unknown Rx [Percocet 10/325 mg] amLODIPine [Norvasc] 5 mg PO DAILY #30 tab 01/26/16 Unknown Rx Famotidine [Pepcid] 20 mg PO BID #60 tablet 04/16/16 Unknown Rx Insulin NPH Hum/Reg Insulin Hm 40 unit SQ BID #1 vial 04/16/16 Unknown Rx [HumuLIN 70-30 Vial] Oxycodone HCl/Acetaminophen 1 each PO Q6HR PRN #14 tablet 04/16/16 Unknown Rx [Percocet 10/325 mg] Allergies Allergy/AdvReac Type Severity Reaction Status Date / Time ibuprofen Allergy Shortness Verified 08/27/15 11:08 of Breath ketorolac [From Toradol] Allergy Unknown Verified 03/18/17 21:42 tramadol Allergy Shortness Verified 08/27/15 11:08 of Breath cefaclor [From Ceclor] AdvReac Rash Verified 08/27/15 11:08 ED Review of Systems ROS: Stated complaint: EAR PAIN Other details as noted in HPI Respiratory: denies: wheezing ED Past Medical Hx - Past Medical History Previous Medical History?: Yes Hx Hypertension: Yes Hx Congestive Heart Failure: No Hx Diabetes: Yes Hx Asthma: No Hx COPD: No Hx HIV: No Additional medical history: AML - Surgical History Past Surgical History?: Yes Hx Open Heart Surgery: No Hx Appendectomy: Yes Hx Breast Surgery: No - Social History Smoking Status: Never Smoker Substance Use Type: None - Medications Home Medications: Home Medications Medication Instructions Recorded Confirmed Last Taken Type Insulin NPH Hum/Reg Insulin Hm 30 unit SQ QHS 08/27/15 04/14/16 08/27/15 History [HumuLIN 70-30 Vial] Insulin NPH Hum/Reg Insulin Hm 40 unit SQ QAM 08/27/15 04/14/16 08/27/15 History [HumuLIN 70-30 Vial] Lisinopril [Zestril TAB] 40 mg PO BID 08/27/15 04/14/16 08/27/15 History Vesnoid BID 08/27/15 08/27/15 History Oxycodone HCl/Acetaminophen 1 each PO Q6HR PRN #14 tablet 01/26/16 04/14/16 Unknown Rx [Percocet 10/325 mg] amLODIPine [Norvasc] 5 mg PO DAILY #30 tab 01/26/16 04/14/16 Unknown Rx Famotidine [Pepcid] 20 mg PO BID #60 tablet 04/16/16 Unknown Rx Insulin NPH Hum/Reg Insulin Hm 40 unit SQ BID #1 vial 04/16/16 Unknown Rx [HumuLIN 70-30 Vial] Oxycodone HCl/Acetaminophen 1 each PO Q6HR PRN #14 tablet 04/16/16 Unknown Rx [Percocet 10/325 mg] ED Physical Exam - Eye Eye exam: Present: normal appearance, PERRL, EOMI. Absent: conjunctival injection, nystagmus, periorbital swelling, periorbital tenderness Pupils: Present: normal accommodation - ENT ENT exam: Present: normal exam, normal orophraynx, mucous membranes moist, TM's normal bilaterally, normal external ear exam - Neck Neck exam: Present: normal inspection, full ROM. Absent: tenderness, meningismus, lymphadenopathy, thyromegaly - Respiratory Respiratory exam: Present: normal lung sounds bilaterally. Absent: respiratory distress, wheezes, rales, rhonchi, stridor, chest wall tenderness, accessory muscle use, decreased breath sounds, prolonged expiratory - Cardiovascular Cardiovascular Exam: Present: regular rate, normal rhythm, normal heart sounds. Absent: bradycardia, tachycardia, irregular rhythm, systolic murmur, diastolic murmur, rubs, gallop - GI/Abdominal GI/Abdominal exam: Present: soft, normal bowel sounds. Absent: distended, tenderness, guarding, rebound, rigid, diminished bowel sounds - Rectal Rectal exam: Present: deferred - Extremities Exam Extremities exam: Present: normal inspection, full ROM, normal capillary refill. Absent: tenderness, pedal edema, joint swelling, calf tenderness - Back Exam Back exam: Present: normal inspection, full ROM. Absent: tenderness, CVA tenderness (R), CVA tenderness (L), muscle spasm, paraspinal tenderness, vertebral tenderness, rash noted - Neurological Exam Neurological exam: Present: alert, oriented X3, CN II-XII intact, normal gait. Absent: other - Psychiatric Psychiatric exam: Present: normal affect, normal mood - Skin Skin exam: Present: warm, dry, intact, normal color. Absent: rash ED Course Vital Signs 03/18/17 20:22 Temperature 98.9 F Pulse Rate 78 Respiratory 16 Rate Blood Pressure 161/100 O2 Sat by Pulse 99 Oximetry - Reevaluation(s) Reevaluation #1: 03/18/17 22:53 Patient is speaking in full sentences with no signs of distress noted. - Consultations Consultation #1: 03/18/17 22:56 Dr. Luu has been consulted about patient history, physical exam, and examined patient himself. Agrees to the plan of care in the ED. ED Medical Decision Making - Lab Data Result diagrams: 03/18/17 22:48 Critical care attestation.: If time is entered above; I have spent that time in minutes in the direct care of this critically ill patient, excluding procedure time. ED Disposition Condition: Stable Referrals: PRIMARY CARE, [Primary Care Provider] - 3-5 Days
[2017-03-18 22:56] LABS: Basophils % (Auto) 0.8 % (0.0-1.8); Eosinophils % (Auto) 0.2 % (0.0-4.3); Hematocrit 39.7 % (30.3-42.9); Hemoglobin 12.8 gm/dl (10.1-14.3); Mean Corpuscular HGB Conc 32 % (30-34); Mean Corpuscular Hemoglobin 30 pg (28-32); Mean Corpuscular Volume 92 fl (79-97); Platelet Count 327 K/mm3 (140-440); Red Blood Count 4.32 M/mm3 (3.65-5.03); Red Cell Distribution Width 14.2 % (13.2-15.2); White Blood Count 11.8 K/mm3 (4.5-11.0)
[2017-03-18] MEDS ORDERED: DECADRON IM ONE (22:57)
[2017-03-18 23:15] LABS: Anion Gap 24 mmol/L; BUN/Creatinine Ratio 23; Blood Urea Nitrogen 9 mg/dL (7-17); Calcium 9.9 mg/dL (8.4-10.2); Carbon Dioxide 24 mmol/L (22-30); Chloride 93.5 mmol/L (98-107); Glucose 324 mg/dL (65-100); Potassium 3.6 mmol/L (3.6-5.0); Sodium 138 mmol/L (137-145)
--- NOTE | 2017-03-18 23:16 | Emergency Department Report ---
ED ENT HPI - General Chief complaint: Earache Stated complaint: EAR PAIN Time Seen by Provider: 03/18/17 21:55 Source: patient Mode of arrival: Ambulatory Limitations: No Limitations - History of Present Illness Initial comments: This is a 47-year-old female nontoxic, well nourished in appearance, no acute signs of distress presents to the ED with c/o of right ear pain x2 days. Patient describes pain as aching with level of 8/10. Patient also stated has decreased hearing but denies hearing loss. Patient denies any ear discharge, fever, chills, headache, nausea, vomiting, dizziness, chest pain, shortness of breathe, stiff neck, blurry vision. Patient states allergies to tramadol, ibuprofen, and ceclor. PMH includes DM and HTN. Patient stated she took her blood pressure medication today and her DM medication today as well. MD complaint: ear pain -: days(s) (2) Location: R ear Severity: mild Severity scale (0 -10): 8 Quality: aching Improves with: none Worsens with: none Associated Symptoms: hearing loss (decreased). denies: fever, cough, gum swelling, toothache, pain with swallowing, sore throat, tinnitus, discharge from ear, rhinorrhea - Related Data Home Medications Medication Instructions Recorded Confirmed Last Taken Insulin NPH Hum/Reg Insulin Hm 30 unit SQ QHS 08/27/15 04/14/16 08/27/15 [HumuLIN 70-30 Vial] Insulin NPH Hum/Reg Insulin Hm 40 unit SQ QAM 08/27/15 04/14/16 08/27/15 [HumuLIN 70-30 Vial] Lisinopril [Zestril TAB] 40 mg PO BID 08/27/15 04/14/16 08/27/15 Vesnoid BID 08/27/15 08/27/15 Previous Rx's Medication Instructions Recorded Last Taken Type Oxycodone HCl/Acetaminophen 1 each PO Q6HR PRN #14 tablet 01/26/16 Unknown Rx [Percocet 10/325 mg] amLODIPine [Norvasc] 5 mg PO DAILY #30 tab 01/26/16 Unknown Rx Famotidine [Pepcid] 20 mg PO BID #60 tablet 04/16/16 Unknown Rx Insulin NPH Hum/Reg Insulin Hm 40 unit SQ BID #1 vial 04/16/16 Unknown Rx [HumuLIN 70-30 Vial] Oxycodone HCl/Acetaminophen 1 each PO Q6HR PRN #14 tablet 04/16/16 Unknown Rx [Percocet 10/325 mg] Acetaminophen/Codeine [Tylenol 1 tab PO Q6H PRN #12 tab 03/19/17 Unknown Rx /Codeine # 3 tab] Amoxicillin [Amoxicillin TAB] 875 mg PO BID #20 tablet 03/19/17 Unknown Rx Allergies Allergy/AdvReac Type Severity Reaction Status Date / Time ibuprofen Allergy Shortness Verified 08/27/15 11:08 of Breath ketorolac [From Toradol] Allergy Unknown Verified 03/18/17 21:42 tramadol Allergy Shortness Verified 08/27/15 11:08 of Breath cefaclor [From Ceclor] AdvReac Rash Verified 08/27/15 11:08 ED Dental HPI - General Chief complaint: Earache Stated complaint: EAR PAIN Time Seen by Provider: 03/18/17 21:55 Source: patient Mode of arrival: Ambulatory Limitations: No Limitations - History of Present Illness Severity: mild Improves with: none - Related Data Home Medications Medication Instructions Recorded Confirmed Last Taken Insulin NPH Hum/Reg Insulin Hm 30 unit SQ QHS 08/27/15 04/14/16 08/27/15 [HumuLIN 70-30 Vial] Insulin NPH Hum/Reg Insulin Hm 40 unit SQ QAM 08/27/15 04/14/16 08/27/15 [HumuLIN 70-30 Vial] Lisinopril [Zestril TAB] 40 mg PO BID 08/27/15 04/14/16 08/27/15 Vesnoid BID 08/27/15 08/27/15 Previous Rx's Medication Instructions Recorded Last Taken Type Oxycodone HCl/Acetaminophen 1 each PO Q6HR PRN #14 tablet 01/26/16 Unknown Rx [Percocet 10/325 mg] amLODIPine [Norvasc] 5 mg PO DAILY #30 tab 01/26/16 Unknown Rx Famotidine [Pepcid] 20 mg PO BID #60 tablet 04/16/16 Unknown Rx Insulin NPH Hum/Reg Insulin Hm 40 unit SQ BID #1 vial 04/16/16 Unknown Rx [HumuLIN 70-30 Vial] Oxycodone HCl/Acetaminophen 1 each PO Q6HR PRN #14 tablet 04/16/16 Unknown Rx [Percocet 10/325 mg] Acetaminophen/Codeine [Tylenol 1 tab PO Q6H PRN #12 tab 03/19/17 Unknown Rx /Codeine # 3 tab] Amoxicillin [Amoxicillin TAB] 875 mg PO BID #20 tablet 03/19/17 Unknown Rx Allergies Allergy/AdvReac Type Severity Reaction Status Date / Time ibuprofen Allergy Shortness Verified 08/27/15 11:08 of Breath ketorolac [From Toradol] Allergy Unknown Verified 03/18/17 21:42 tramadol Allergy Shortness Verified 08/27/15 11:08 of Breath cefaclor [From Ceclor] AdvReac Rash Verified 08/27/15 11:08 ED Review of Systems ROS: Stated complaint: EAR PAIN Other details as noted in HPI Constitutional: denies: chills, fever Eyes: denies: eye pain, eye discharge, vision change ENT: ear pain. denies: throat pain Respiratory: denies: cough, shortness of breath, wheezing Cardiovascular: denies: chest pain, palpitations Endocrine: no symptoms reported Gastrointestinal: denies: abdominal pain, nausea, diarrhea Genitourinary: denies: urgency, dysuria, discharge Musculoskeletal: denies: back pain, joint swelling, arthralgia Skin: denies: rash, lesions Neurological: denies: headache, weakness, paresthesias Psychiatric: denies: anxiety, depression Hematological/Lymphatic: denies: easy bleeding, easy bruising ED Past Medical Hx - Past Medical History Previous Medical History?: Yes Hx Hypertension: Yes Hx Congestive Heart Failure: No Hx Diabetes: Yes Hx Asthma: No Hx COPD: No Hx HIV: No Additional medical history: AML - Surgical History Past Surgical History?: Yes Hx Open Heart Surgery: No Hx Appendectomy: Yes Hx Breast Surgery: No - Social History Smoking Status: Never Smoker Substance Use Type: None - Medications Home Medications: Home Medications Medication Instructions Recorded Confirmed Last Taken Type Insulin NPH Hum/Reg Insulin Hm 30 unit SQ QHS 08/27/15 04/14/16 08/27/15 History [HumuLIN 70-30 Vial] Insulin NPH Hum/Reg Insulin Hm 40 unit SQ QAM 08/27/15 04/14/16 08/27/15 History [HumuLIN 70-30 Vial] Lisinopril [Zestril TAB] 40 mg PO BID 08/27/15 04/14/16 08/27/15 History Vesnoid BID 08/27/15 08/27/15 History Oxycodone HCl/Acetaminophen 1 each PO Q6HR PRN #14 tablet 01/26/16 04/14/16 Unknown Rx [Percocet 10/325 mg] amLODIPine [Norvasc] 5 mg PO DAILY #30 tab 01/26/16 04/14/16 Unknown Rx Famotidine [Pepcid] 20 mg PO BID #60 tablet 04/16/16 Unknown Rx Insulin NPH Hum/Reg Insulin Hm 40 unit SQ BID #1 vial 04/16/16 Unknown Rx [HumuLIN 70-30 Vial] Oxycodone HCl/Acetaminophen 1 each PO Q6HR PRN #14 tablet 04/16/16 Unknown Rx [Percocet 10/325 mg] Acetaminophen/Codeine [Tylenol 1 tab PO Q6H PRN #12 tab 03/19/17 Unknown Rx /Codeine # 3 tab] Amoxicillin [Amoxicillin TAB] 875 mg PO BID #20 tablet 03/19/17 Unknown Rx ED Physical Exam - General Limitations: No Limitations General appearance: alert, in no apparent distress - Head Head exam: Present: atraumatic, normocephalic, normal inspection - Eye Eye exam: Present: normal appearance, PERRL, EOMI. Absent: scleral icterus, conjunctival injection, nystagmus, periorbital swelling, periorbital tenderness - ENT ENT exam: Present: normal orophraynx, mucous membranes moist - Expanded ENT Exam Expanded TM/Canal exam: Erythema: Right TM, Bulging: Right TM, Mastoid Tenderness: Right TM Mouth exam: Present: normal external inspection, tongue normal. Absent: drooling, trismus, muffled voice, tongue elevation, laceration Teeth exam: Present: normal inspection Throat exam: Positive: normal inspection. Negative: tonsillar erythema, tonsillomegaly, tonsillar exudate, R peritonsillar mass, L peritonsillar mass - Neck Neck exam: Present: normal inspection, full ROM. Absent: tenderness, meningismus, lymphadenopathy, thyromegaly - Respiratory Respiratory exam: Present: normal lung sounds bilaterally. Absent: respiratory distress, wheezes, rales, rhonchi, stridor, chest wall tenderness, accessory muscle use, decreased breath sounds, prolonged expiratory - Cardiovascular Cardiovascular Exam: Present: regular rate, normal rhythm, normal heart sounds. Absent: irregular rhythm, systolic murmur, diastolic murmur, rubs, gallop - GI/Abdominal GI/Abdominal exam: Present: soft, normal bowel sounds. Absent: distended, tenderness, guarding, rebound, rigid, diminished bowel sounds - Rectal Rectal exam: Present: deferred - Extremities Exam Extremities exam: Present: normal inspection, full ROM, normal capillary refill. Absent: tenderness, pedal edema, joint swelling, calf tenderness - Back Exam Back exam: Present: normal inspection, full ROM. Absent: tenderness, CVA tenderness (R), CVA tenderness (L), muscle spasm, paraspinal tenderness, vertebral tenderness, rash noted - Neurological Exam Neurological exam: Present: alert, oriented X3, CN II-XII intact, normal gait, reflexes normal - Psychiatric Psychiatric exam: Present: normal affect, normal mood - Skin Skin exam: Present: warm, dry, intact, normal color. Absent: rash ED Course Vital Signs 03/18/17 03/18/17 03/19/17 20:22 23:42 00:18 Temperature 98.9 F Pulse Rate 78 Respiratory 16 18 18 Rate Blood Pressure 161/100 O2 Sat by Pulse 99 Oximetry - Reevaluation(s) Reevaluation #1: 03/18/17 23:20 Patient is speaking in full sentences with no signs of distress noted. - Consultations Consultation #1: 03/18/17 23:[address] Dasilva from [facility] confirmed CT without contrast to r/ u mastoiditis. ED Medical Decision Making - Lab Data Result diagrams: 03/18/17 22:48 03/18/17 22:48 - Medical Decision Making This is a 47-year-old female that presents with otitis media. PAtient is stable and was examined by me. CBC, BMP obtained. CT with contrast obtained and dictated radiologist due to massive tenderness. Impression; normal examination. Patient notified of CT results with no further question about patient. She was instructed not to operate any machinery after discharged due to drowsiness of Tylenol No. 3. Patient stated her will drive the patient home. Patient discharged with amoxicillin 10 days. Patient was instructed Follow-up with a primary care doctor/ENT doctor in 3-5 days or if symptoms worsen and continue return to emergency room as soon as possible. At time time of discharge, the patient does not seem toxic or ill in appearance. No acute signs of distress noted. Patient agrees to discharge treatment plan of care. No further questions noted by the patient. Critical care attestation.: If time is entered above; I have spent that time in minutes in the direct care of this critically ill patient, excluding procedure time. ED Disposition Clinical Impression: Otitis media Qualifiers: Otitis media type: unspecified Laterality: right Qualified Code(s): H66.91 - Otitis media, unspecified, right ear Disposition: - TO HOME OR SELFCARE Is pt being admited?: No Does the pt Need Aspirin: No Condition: Stable Instructions: Otitis Media (ED), Acetaminophen/Codeine (By mouth), Amoxicillin (By mouth) Additional Instructions: Follow-up with a primary care doctor/ENT doctor in 3-5 days or if symptoms worsen and continue return to emergency room as soon as possible. Do not Operate any machinery after discharge and do not operate any machinery while taking Tylenol #3 due to drowsiness. Prescriptions: Acetaminophen/Codeine [Tylenol /Codeine # 3 tab] 1 tab PO Q6H PRN #12 tab PRN Reason: Pain Amoxicillin [Amoxicillin TAB] 875 mg PO BID #20 tablet Referrals: PRIMARY CARE, [Primary Care Provider] - 3-5 Days YASMIN KELLY MD [Staff Physician] - 3-5 Days GINA NAVARRETE MD [Staff Physician] - 3-5 Days [facility] [Outside] - 3-5 Days [facility] [Outside] - 3-5 Days Forms: Work/School Release Form(ED)
[2017-03-18] MEDS ORDERED: TYLENOL PO ONE (23:25)
[2017-03-19] MEDS ORDERED: TYLENOL #3 PO ONE (00:14)
[2017-03-19] MEDS ORDERED: TYLENOL #3 ONE (00:18)
--- NOTE | 2017-03-19 00:31 | Cat Scan Report ---
FINAL REPORT EXAM: CT FACIAL BONES WO CON HISTORY: right ear pain r/o mastoiditis TECHNIQUE: Routine axial imaging was obtained of the facial bones without IV contrast with sagittal and coronal reconstructions. FINDINGS: The mastoid air cells are well pneumatized bilaterally. The ossicles and labyrinthine structures appear normal. The external auditory canals appear normal also. The orbital rims and floors appear intact. The nasal bones and zygomatic arches appear normal. The mandible appears intact. The soft tissues show no evidence of swelling or lymphadenopathy. The parotid glands appear normal. IMPRESSION: Normal exam. In particular, no abnormalities identified to account for the patient's history of right ear pain.
[2017-03-19 03:00] VITALS: BP 158/93
== END 2017-03-19 01:15 | disposition home or self-care (01) ==
LOC: ED 18:30
DX: H66.91 Otitis media, unspecified, right ear (principal); I10 Essential (primary) hypertension; E11.9 Type 2 diabetes mellitus without complications; Z79.4 Long term (current) use of insulin; Z88.6 Allergy status to analgesic agent; Z88.8 Allergy status to other drugs, medicaments and biological substances
CPT/HCPCS: 36415; 70486; 80048; 85025; 99284

== ENCOUNTER 2019-01-23 18:47 | Inpatient (IN) | payer MEDICAID, OTHER ==
--- NOTE | 2019-01-23 18:55 | Event Note ---
ED Screening Note Date of service: 01/23/19 Time: 18:50 ED Screening Note: This is a 48 y.o. F. that presents to the ER with numbness and tingling to left side. Patient states symptoms started after 1800 today. He noticed patient slurred speech and weakness on left side. PMH of HTN, GERD, & DM2 This initial assessment/diagnostic orders/clinical plan/treatment(s) is/are subject to change based on patients health status, clinical progression and re- assessment by fellow clinical providers in the ED. Further treatment and workup at subsequent clinical providers discretion. Patient/guardian urged not to elope from the ED as their condition may be serious if not clinically assessed and managed. Initial orders include: Labs and CT of head
[2019-01-23 19:14] LABS: Basophils # (Auto) 0.1 K/mm3 (0.0-0.1); Basophils % (Auto) 0.6 % (0.0-1.8); Eosinophils # (Auto) 0.1 K/mm3 (0.0-0.4); Eosinophils % (Auto) 0.5 % (0.0-4.3); Hematocrit 22.6 % (30.3-42.9); Hemoglobin 6.7 gm/dl (10.1-14.3); Lymphocytes # (Auto) 3.8 K/mm3 (1.2-5.4); Lymphocytes % (Auto) 27.4 % (13.4-35.0); Mean Corpuscular HGB Conc 30 % (30-34); Monocytes # (Auto) 0.9 K/mm3 (0.0-0.8); Monocytes % (Auto) 6.5 % (0.0-7.3); Platelet Count 508 K/mm3 (140-440); Red Blood Count 3.27 M/mm3 (3.65-5.03); Red Cell Distribution Width 18.6 % (13.2-15.2)
[2019-01-23 19:15] LABS: Mean Corpuscular Volume 69 fl (79-97)
--- NOTE | 2019-01-23 19:21 | Emergency Department Report ---
ED Neuro Deficit HPI - General Chief Complaint: Neuro Symptoms/Deficit Stated Complaint: WEAKNESS Time Seen by Provider: 01/23/19 18:49 Source: patient Mode of arrival: Ambulatory Limitations: No Limitations - History of Present Illness Initial Comments: [facility] Date of Service: 01/23/2019 18:58:56 Impression: RO Acute Ischemic Stroke Right Hemispheric Comments: the patient has had symptoms of left-sided weakness and balance and slurred speech with her initial symptoms beginning yesterday almost 24 hours ago. For this reason she is not a TPA candidate and not in neuro-interventional candid ate. As long as the official read on the CT of the head is unremarkable recommend starting aspirin therapy and admitting for stroke workup and inpatient neurology consultation. Permissive hypertension per non-TPA stroke protocol. Mechanism of Stroke: Possible Thromboembolic Possible Cardioembolic Small Vessel Disease unclear mechanism Metrics: Last Known Well: 01/22/2019 20:00:00 [employer] Notification Time: 01/23/2019 18:58:02 Arrival Time: 01/23/2019 18:50:00 Stamp Time: 01/23/2019 18:58:56 Time First Login Attempt: 01/23/2019 19:00:00 Video Start Time: 01/23/2019 19:00:00 Symptoms: left-sided weakness and slurred speech NIHSS Start Assessment Time: 01/23/2019 19:05:00 Patient is not a candidate for tPA. Patient was not deemed candidate for tPA thrombolytics because of Last Well Known Above 4.5 Hours. Video End Time: 01/23/2019 19:17:19 CT head showed no acute hemorrhage or acute core infarct.chronic subcotrical lacunar infarcts bilaterally offical read pending ER physician notified of the decision on thrombolytics management. Our recommendations are outlined below. Recommendations: Antiplatelet Therapy Recommended as long as official read on the CT head is negative for bleed recommend starting aspirin therapy Therapies: Physical Therapy, Occupational Therapy, Speech Therapy Assessment When Applicable DVT prophylaxis: Choice of Primary Team Disposition: Sign Out Sign Out: Discussed with Emergency Department Provider History of Present Illness: Patient is a 48 years old Female. Patient was brought by private transportation with symptoms of left-sided weakness and slurred speech 50-year-old woman with a history of diabetes and hypertension not on any blood thinners began to feel imbalance since yesterday at 8 PM. Over the course of the evening she developed slurred speech and left-sided weakness. CT head showed no acute hemorrhage or acute core infarct. Examination: 1A: Level of Consciousness - Alert; keenly responsive + 0 1B: Ask Month and Age - Both Questions Right + 0 1C: Blink Eyes & Squeeze Hands - Performs Both Tasks + 0 2: Test Horizontal Extraocular Movements - Normal + 0 3: Test Visual [place] - No Visual Loss + 0 4: Test Facial Palsy (Use Grimace if Obtunded) - Normal symmetry + 0 5A: Test Left Arm Motor Drift - Drift, but doesn't hit bed + 1 5B: Test Right Arm Motor Drift - No Drift for 10 Seconds + 0 6A: Test Left Leg Motor Drift - Drift, but doesn't hit bed + 1 6B: Test Right Leg Motor Drift - No Drift for 5 Seconds + 0 7: Test Limb Ataxia (FNF/Heel-Douglas) - LUE=1 8: Test Sensation - Mild-Moderate Loss: Less Sharp/More Dull + 1 9: Test Language/Aphasia - Normal; No aphasia + 0 10: Test Dysarthria - Mild-Moderate Dysarthria: Slurring but can be understood + 1 11: Test Extinction/Inattention - No abnormality + 0 NIHSS Score: 5 Patient was informed the Neurology Consult would happen via TeleHealth consult by way of interactive audio and video telecommunications and consented to receiving care in this manner. Due to the immediate potential for life-threatening deterioration due to underlying acute neurologic illness, I spent 35 minutes providing critical care. This time includes time for face to face visit via telemedicine, review of medical records, imaging studies and discussion of findings with providers, the patient and/or family. Dr Brooklyn Sheridan [employer] - Related Data Home Medications: Home Medications Medication Instructions Recorded Confirmed Last Taken Insulin NPH Hum/Reg Insulin Hm 30 unit SQ QHS 08/27/15 04/14/16 08/27/15 [HumuLIN 70-30 Vial] Insulin NPH Hum/Reg Insulin Hm 40 unit SQ QAM 08/27/15 04/14/16 08/27/15 [HumuLIN 70-30 Vial] Lisinopril [Zestril TAB] 40 mg PO BID 08/27/15 04/14/16 08/27/15 Vesnoid BID 08/27/15 08/27/15 Previous Rx's Medication Instructions Recorded Last Taken Type Oxycodone HCl/Acetaminophen 1 each PO Q6HR PRN #14 tablet 01/26/16 Unknown Rx [Percocet 10/325 mg] amLODIPine [Norvasc] 5 mg PO DAILY #30 tab 01/26/16 Unknown Rx Famotidine [Pepcid] 20 mg PO BID #60 tablet 04/16/16 Unknown Rx Insulin NPH Hum/Reg Insulin Hm 40 unit SQ BID #1 vial 04/16/16 Unknown Rx [HumuLIN 70-30 Vial] Oxycodone HCl/Acetaminophen 1 each PO Q6HR PRN #14 tablet 04/16/16 Unknown Rx [Percocet 10/325 mg] Acetaminophen/Codeine [Tylenol 1 tab PO Q6H PRN #12 tab 03/19/17 Unknown Rx /Codeine # 3 tab] Amoxicillin [Amoxicillin TAB] 875 mg PO BID #20 tablet 03/19/17 Unknown Rx Allergies/Adverse Reactions: Allergies Allergy/AdvReac Type Severity Reaction Status Date / Time ibuprofen Allergy Shortness Verified 08/27/15 11:08 of Breath ketorolac [From Toradol] Allergy Unknown Verified 03/18/17 21:42 tramadol Allergy Shortness Verified 08/27/15 11:08 of Breath cefaclor [From Ceclor] AdvReac Rash Verified 08/27/15 11:08 ED Review of Systems ROS: Stated complaint: WEAKNESS Other details as noted in HPI ED Past Medical Hx - Past Medical History Previous Medical History?: Yes Hx Hypertension: Yes Hx Congestive Heart Failure: No Hx Diabetes: Yes Hx Asthma: No Hx COPD: No Hx HIV: No Additional medical history: AML - Surgical History Past Surgical History?: Yes Hx Open Heart Surgery: No Hx Appendectomy: Yes Hx Breast Surgery: No - Social History Smoking Status: Never Smoker Substance Use Type: None - Medications Home Medications: Home Medications Medication Instructions Recorded Confirmed Last Taken Type Insulin NPH Hum/Reg Insulin Hm 30 unit SQ QHS 08/27/15 04/14/16 08/27/15 History [HumuLIN 70-30 Vial] Insulin NPH Hum/Reg Insulin Hm 40 unit SQ QAM 08/27/15 04/14/16 08/27/15 History [HumuLIN 70-30 Vial] Lisinopril [Zestril TAB] 40 mg PO BID 08/27/15 04/14/16 08/27/15 History Vesnoid BID 08/27/15 08/27/15 History Oxycodone HCl/Acetaminophen 1 each PO Q6HR PRN #14 tablet 01/26/16 04/14/16 Unknown Rx [Percocet 10/325 mg] amLODIPine [Norvasc] 5 mg PO DAILY #30 tab 01/26/16 04/14/16 Unknown Rx Famotidine [Pepcid] 20 mg PO BID #60 tablet 04/16/16 Unknown Rx Insulin NPH Hum/Reg Insulin Hm 40 unit SQ BID #1 vial 04/16/16 Unknown Rx [HumuLIN 70-30 Vial] Oxycodone HCl/Acetaminophen 1 each PO Q6HR PRN #14 tablet 04/16/16 Unknown Rx [Percocet 10/325 mg] Acetaminophen/Codeine [Tylenol 1 tab PO Q6H PRN #12 tab 03/19/17 Unknown Rx /Codeine # 3 tab] Amoxicillin [Amoxicillin TAB] 875 mg PO BID #20 tablet 03/19/17 Unknown Rx ED Neuro Physical Exam - General Limitations: No Limitations Suspected Stroke: Yes - NIHSS Assessment Interval: Baseline 1a. Level of Consciousness: alert/keenly responsive 1b. LOC Questions: answers both correctly 1c. LOC Commands: performs tasks correctly 2. Best Gaze: normal 3. Visual: no visual loss 4. Facial Palsy: normal symmetrical movement 5b. Motor Arm Right: no drift 5a. Motor Arm Left: drift 6a. Motor Leg Left: drift 6b. Motor Leg Right: no drift 7. Limb Ataxia: present 1 limb 8. Sensory: mild/moderate sensory loss 9. Best Language: no aphasia 10. Dysarthria: mild/moderate dysarthria 11. Extinction/Inattention: no abnormality Total Score: 5 Stroke Severity: Moderate Stroke ED Course Vital Signs 01/23/19 18:51 Temperature 98.4 F Pulse Rate 97 H Respiratory 18 Rate Blood Pressure 191/115 [Right] O2 Sat by Pulse 99 Oximetry - Lab Data Result diagrams: 01/23/19 19:04 Lab Results 01/23/19 01/23/19 01/23/19 Range/Units 19:04 19:04 19:25 WBC 14.0 H (4.5-11.0) K/mm3 RBC 3.27 L (3.65-5.03) M/mm3 Hgb 6.7 L (10.1-14.3) gm/dl Hct 22.6 L (30.3-42.9) % MCV 69 L (79-97) fl MCH 21 L (28-32) pg MCHC 30 (30-34) % RDW 18.6 H (13.2-15.2) % Plt Count 508 H (140-440) K/mm3 Lymph % (Auto) 27.4 (13.4-35.0) % [place] % (Auto) 6.5 (0.0-7.3) % Eos % (Auto) 0.5 (0.0-4.3) % Baso % (Auto) 0.6 (0.0-1.8) % Lymph # 3.8 (1.2-5.4) K/mm3 [place] # 0.9 H (0.0-0.8) K/mm3 Eos # 0.1 (0.0-0.4) K/mm3 Baso # 0.1 (0.0-0.1) K/mm3 Seg Neutrophils % 65.0 (40.0-70.0) % Seg Neutrophils # 9.1 H (1.8-7.7) K/mm3 PT 13.8 (12.2-14.9) Sec. INR 1.09 (0.87-1.13) APTT 27.7 (24.2-36.6) Sec. POC Glucose 158 H (70-105) Critical care attestation.: If time is entered above; I have spent that time in minutes in the direct care of this critically ill patient, excluding procedure time. ED Disposition Clinical Impression: Stroke Qualifiers: CVA mechanism: unspecified Qualified Code(s): I63.9 - Cerebral infarction, unspecified Disposition: DC-09 OP ADMIT IP TO THIS HOSP Is pt being admited?: Yes Condition: Stable
[2019-01-23 19:23] LABS: INR 1.09 (0.87-1.13)
[2019-01-23 19:24] LABS: Partial Thromboplastin Time 27.7 Sec. (24.2-36.6)
--- NOTE | 2019-01-23 19:36 | Cat Scan Report ---
CT head/brain wo con INDICATION / CLINICAL INFORMATION: 48 years Female; neuro deficits <6hrs or sx present upon awakening. TECHNIQUE: Routine CT head without contrast. All CT scans at this location are performed using CT dos e reduction for ALARA by means of automated exposure control. COMPARISON: None. FINDINGS: BRAIN / INTRACRANIAL CONTENTS: There are old infarcts involving the ganglia capsular regions bilatera lly as well as the posterior right parietal lobe at. There is a small lacunar infarct along the media l left thalamus which also appears a chronic at. Furthermore, the findings are indicative of chronic ischemic changes along the inferior and posterior cerebellum though there is beam hardening artifact and correlation would be needed regarding age of the findings at. There is otherwise moderate cerebral white matter disease extending to the frontal subcortical region s at. 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 There is no clear CT evidence of acute intracranial hemorrhage or significant mass effect. ORBITS: No significant abnormality of visualized orbits. SINUSES / MASTOIDS: No significant abnormality the visualized paranasal sinuses or mastoid air cells. CRANIOCERVICAL JUNCTION: No significant abnormality. ADDITIONAL FINDINGS: None. IMPRESSION: 1. There are multiple old infarcts which appear chronic as detailed above. 2.There is otherwise moderate microvascular angiopathy without clear CT evidence of acute intracrania l hemorrhage. The study was specified as code stroke and called to [facility] in the ER at 6:[address] Signer Name: Itz Hogan MD Signed: 01/23/2019 7:31 PM Workstation Name: [id number]
[2019-01-23 19:39] LABS: BUN/Creatinine Ratio 16; Blood Urea Nitrogen 8 mg/dL (7-17); Calcium 9.3 mg/dL (8.4-10.2); Hemolysis Index 0
[2019-01-23] MEDS ORDERED: BABY ASPIRIN PO ONE (20:26)
[2019-01-23] MEDS ORDERED: PERCOCET 5/325 PO ONE (20:26)
[2019-01-23] MEDS ORDERED: NORMODYNE IV ONE (20:27)
--- NOTE | 2019-01-23 20:53 | Emergency Department Report ---
ED Neuro Deficit HPI - General Chief Complaint: Neuro Symptoms/Deficit Stated Complaint: WEAKNESS Time Seen by Provider: 01/23/19 18:49 Source: patient Mode of arrival: Ambulatory Limitations: No Limitations - History of Present Illness Initial Comments: Mrs. Szymanski is a 48-year-old female with history of hypertension, diabetes mellitus, GERD, chronic back pain who presents with strokelike symptoms since 8 PM yesterday. Yesterday evening, she noticed her left side was weak. She also noticed that she did not have good balance when she attempted to walk. She uses a cane at baseline due to left-sided sciatica due to previous trauma. Today, when her returned from work, he noticed that she had left facial droop. He also was concern for stroke. Consequently she came to the ED. No previous history of stroke. She denies headache at this time. She has back pain which is not new. Back pain has been persistent since remote trauma several years ago. Due to remote trauma she is disabled and unable to work. Her PCP is Dr. Hodges affiliated with [facility]. History of AML in remission. Previously followed by oncologist Dr. Mango [facility] [place] I reviewed the electronic record, in 2017 she was admitted to this hospital for treatment for diabetic ketoacidosis. Also evaluated received cardiology evaluation for chest pain. Chest pain seemed to be noncardiac related to GERD. -: Sudden, Last night, unknown (8 PM yesterday evening) Location: speech, left face, left arm, left leg Presenting Symptoms: Present: Weak/Paralyzed One Side, Facial Droop/Numbness, Unable to Speak Clearly History of same: No Place: home Severity: moderate Quality: weak Improves With: none Worsens With: none On Anticoagulants: No Context: sudden onset Associated Symptoms: denies other symptoms Treatments Prior to Arrival: none - Related Data Home Medications: Home Medications Medication Instructions Recorded Confirmed Last Taken Insulin NPH Hum/Reg Insulin Hm 30 unit SQ QHS 08/27/15 04/14/16 08/27/15 [HumuLIN 70-30 Vial] Insulin NPH Hum/Reg Insulin Hm 40 unit SQ QAM 08/27/15 04/14/16 08/27/15 [HumuLIN 70-30 Vial] Lisinopril [Zestril TAB] 40 mg PO BID 08/27/15 04/14/16 08/27/15 Vesnoid BID 08/27/15 08/27/15 Previous Rx's Medication Instructions Recorded Last Taken Type Oxycodone HCl/Acetaminophen 1 each PO Q6HR PRN #14 tablet 01/26/16 Unknown Rx [Percocet 10/325 mg] amLODIPine [Norvasc] 5 mg PO DAILY #30 tab 01/26/16 Unknown Rx Famotidine [Pepcid] 20 mg PO BID #60 tablet 04/16/16 Unknown Rx Insulin NPH Hum/Reg Insulin Hm 40 unit SQ BID #1 vial 04/16/16 Unknown Rx [HumuLIN 70-30 Vial] Oxycodone HCl/Acetaminophen 1 each PO Q6HR PRN #14 tablet 04/16/16 Unknown Rx [Percocet 10/325 mg] Acetaminophen/Codeine [Tylenol 1 tab PO Q6H PRN #12 tab 03/19/17 Unknown Rx /Codeine # 3 tab] Amoxicillin [Amoxicillin TAB] 875 mg PO BID #20 tablet 03/19/17 Unknown Rx Allergies/Adverse Reactions: Allergies Allergy/AdvReac Type Severity Reaction Status Date / Time ibuprofen Allergy Shortness Verified 08/27/15 11:08 of Breath ketorolac [From Toradol] Allergy Unknown Verified 03/18/17 21:42 tramadol Allergy Shortness Verified 08/27/15 11:08 of Breath cefaclor [From Ceclor] AdvReac Rash Verified 08/27/15 11:08 ED Review of Systems ROS: Stated complaint: WEAKNESS Other details as noted in HPI Comment: All other systems reviewed and negative Respiratory: denies: cough, shortness of breath Cardiovascular: denies: chest pain Gastrointestinal: other (chronic nausea vomiting, Mrs. Szymanski thinks she may have gastroparesis) Skin: denies: rash, lesions Neurological: abnormal gait. denies: headache, numbness, paresthesias, confusion ED Past Medical Hx - Past Medical History Previous Medical History?: Yes Hx Hypertension: Yes Hx Congestive Heart Failure: No Hx Diabetes: Yes Hx Asthma: No Hx COPD: No Hx HIV: No Additional medical history: AML - Surgical History Past Surgical History?: Yes Hx Open Heart Surgery: No Hx Appendectomy: Yes Hx Breast Surgery: No - Social History Smoking Status: Never Smoker Substance Use Type: None - Medications Home Medications: Home Medications Medication Instructions Recorded Confirmed Last Taken Type Insulin NPH Hum/Reg Insulin Hm 30 unit SQ QHS 08/27/15 04/14/16 08/27/15 History [HumuLIN 70-30 Vial] Insulin NPH Hum/Reg Insulin Hm 40 unit SQ QAM 08/27/15 04/14/16 08/27/15 History [HumuLIN 70-30 Vial] Lisinopril [Zestril TAB] 40 mg PO BID 08/27/15 04/14/16 08/27/15 History Vesnoid BID 08/27/15 08/27/15 History Oxycodone HCl/Acetaminophen 1 each PO Q6HR PRN #14 tablet 01/26/16 04/14/16 Unknown Rx [Percocet 10/325 mg] amLODIPine [Norvasc] 5 mg PO DAILY #30 tab 01/26/16 04/14/16 Unknown Rx Famotidine [Pepcid] 20 mg PO BID #60 tablet 04/16/16 Unknown Rx Insulin NPH Hum/Reg Insulin Hm 40 unit SQ BID #1 vial 04/16/16 Unknown Rx [HumuLIN 70-30 Vial] Oxycodone HCl/Acetaminophen 1 each PO Q6HR PRN #14 tablet 04/16/16 Unknown Rx [Percocet 10/325 mg] Acetaminophen/Codeine [Tylenol 1 tab PO Q6H PRN #12 tab 03/19/17 Unknown Rx /Codeine # 3 tab] Amoxicillin [Amoxicillin TAB] 875 mg PO BID #20 tablet 03/19/17 Unknown Rx ED Neuro Physical Exam - General Limitations: No Limitations General appearance: alert, in no apparent distress Suspected Stroke: Yes - Head Head exam: Present: atraumatic, normocephalic - Eye Eye exam: Present: normal appearance - ENT ENT exam: Present: mucous membranes moist - Neck Neck exam: Present: normal inspection, full ROM. Absent: tenderness, meningismus - Respiratory Respiratory exam: Present: normal lung sounds bilaterally. Absent: respiratory distress, wheezes, rales, rhonchi, stridor - Cardiovascular Cardiovascular Exam: Present: regular rate, normal rhythm, normal heart sounds. Absent: systolic murmur, diastolic murmur, rubs, gallop - GI/Abdominal GI/Abdominal exam: Present: soft, normal bowel sounds. Absent: distended, tenderness, guarding, rebound - Rectal Rectal exam: Present: normal inspection, normal rectal tone, heme (-) stool, other (orange brown stool) - Extremities Exam Extremities exam: Present: normal inspection - Back Exam Back exam: Present: normal inspection - Neurological Exam Neurological exam: Present: alert, oriented X3, motor sensory deficit. Absent: CN II-XII intact (left facial paralysis) - NIHSS Assessment Interval: Baseline 1a. Level of Consciousness: alert/keenly responsive 1b. LOC Questions: answers 1 question correctly 1c. LOC Commands: performs tasks correctly 2. Best Gaze: normal 3. Visual: no visual loss 4. Facial Palsy: minor paralysis 5b. Motor Arm Right: no drift 5a. Motor Arm Left: drift 6a. Motor Leg Left: drift 6b. Motor Leg Right: no drift 7. Limb Ataxia: absent 8. Sensory: normal 9. Best Language: mild/moderate aphasia 10. Dysarthria: mild/moderate dysarthria 11. Extinction/Inattention: no abnormality Total Score: 6 Stroke Severity: Moderate Stroke - Psychiatric Psychiatric exam: Present: normal affect, normal mood - Skin Skin exam: Present: warm, dry, intact, normal color. Absent: rash ED Course Vital Signs 01/23/19 01/23/19 01/23/19 18:51 19:13 19:30 Temperature 98.4 F Pulse Rate 97 H 92 H Respiratory 18 28 H Rate Blood Pressure 178/115 191/115 Blood Pressure 191/115 [Right] O2 Sat by Pulse 99 98 Oximetry 01/23/19 01/23/19 01/23/19 19:45 20:00 20:21 Temperature Pulse Rate 101 H 92 H 102 H Respiratory 29 H 27 H 20 Rate Blood Pressure 180/115 180/115 191/115 Blood Pressure [Right] O2 Sat by Pulse 99 98 98 Oximetry 01/23/19 01/23/19 01/23/19 20:30 20:45 20:50 Temperature 98.4 F Pulse Rate 97 H 89 101 H Respiratory 17 10 L Rate Blood Pressure 180/110 175/102 174/115 Blood Pressure [Right] O2 Sat by Pulse 99 97 Oximetry 01/23/19 21:00 Temperature Pulse Rate 90 Respiratory 28 H Rate Blood Pressure 161/87 Blood Pressure [Right] O2 Sat by Pulse 94 Oximetry - Lab Data Result diagrams: 01/23/19 19:04 01/23/19 19:04 Lab Results 01/23/19 01/23/19 01/23/19 Range/Units 19:04 19:04 19:04 WBC 14.0 H (4.5-11.0) K/mm3 RBC 3.27 L (3.65-5.03) M/mm3 Hgb 6.7 L (10.1-14.3) gm/dl Hct 22.6 L (30.3-42.9) % MCV 69 L (79-97) fl MCH 21 L (28-32) pg MCHC 30 (30-34) % RDW 18.6 H (13.2-15.2) % Plt Count 508 H (140-440) K/mm3 Lymph % (Auto) 27.4 (13.4-35.0) % [place]ane % (Auto) 6.5 (0.0-7.3) % Eos % (Auto) 0.5 (0.0-4.3) % Baso % (Auto) 0.6 (0.0-1.8) % Lymph # 3.8 (1.2-5.4) K/mm3 Dane # 0.9 H (0.0-0.8) K/mm3 Eos # 0.1 (0.0-0.4) K/mm3 Baso # 0.1 (0.0-0.1) K/mm3 Seg Neutrophils % 65.0 (40.0-70.0) % Seg Neutrophils # 9.1 H (1.8-7.7) K/mm3 PT 13.8 (12.2-14.9) Sec. INR 1.09 (0.87-1.13) APTT 27.7 (24.2-36.6) Sec. Thrombin Time (15.1-19.6) Sec. Sodium 139 (137-145) mmol/L Potassium 3.5 L (3.6-5.0) mmol/L Chloride 99.1 (98-107) mmol/L Carbon Dioxide 22 (22-30) mmol/L Anion Gap 21 mmol/L BUN 8 (7-17) mg/dL Creatinine 0.5 L (0.7-1.2) mg/dL Estimated GFR > 60 ml/min BUN/Creatinine Ratio 16 % Glucose 148 H (65-100) mg/dL POC Glucose (70-105) Calcium 9.3 (8.4-10.2) mg/dL Troponin T < 0.010 (0.00-0.029) ng/mL 01/23/19 01/23/19 Range/Units 19:04 19:25 WBC (4.5-11.0) K/mm3 RBC (3.65-5.03) M/mm3 Hgb (10.1-14.3) gm/dl Hct (30.3-42.9) % MCV (79-97) fl MCH (28-32) pg MCHC (30-34) % RDW (13.2-15.2) % Plt Count (140-440) K/mm3 Lymph % (Auto) (13.4-35.0) % Dane % (Auto) (0.0-7.3) % Eos % (Auto) (0.0-4.3) % Baso % (Auto) (0.0-1.8) % Lymph # (1.2-5.4) K/mm3 Dane # (0.0-0.8) K/mm3 Eos # (0.0-0.4) K/mm3 Baso # (0.0-0.1) K/mm3 Seg Neutrophils % (40.0-70.0) % Seg Neutrophils # (1.8-7.7) K/mm3 PT (12.2-14.9) Sec. INR (0.87-1.13) APTT (24.2-36.6) Sec. Thrombin Time 15.5 (15.1-19.6) Sec. Sodium (137-145) mmol/L Potassium (3.6-5.0) mmol/L Chloride (98-107) mmol/L Carbon Dioxide (22-30) mmol/L Anion Gap mmol/L BUN (7-17) mg/dL Creatinine (0.7-1.2) mg/dL Estimated GFR ml/min BUN/Creatinine Ratio % Glucose (65-100) mg/dL POC Glucose 158 H (70-105) Calcium (8.4-10.2) mg/dL Troponin T (0.00-0.029) ng/mL 01/23/19 21:20 EKG obtained 2111 Normal sinus rhythm rate 90 beats a minute normal axis prolonged QTc poor R-wave progression in anterior leads no ST elevation nonspecific T wave pattern - Medical Decision Making Mrs. Szymanski presents with signs and symptoms of acute CVA. Due to time of onset, TPA is not indicated. Endovascular intervention is also not indicated at this time according to neurology consultation. Teleneurologist recommended aspirin. Aspirin therapy was given in the emergency department. I have managed blood pressure with labetalol IV. Upon laboratory review, microcytic anemia noted. This is new for patient. She has had normal hemoglobin and hematocrit on all previous visits. Hemoccult negative on this exam. History of AML. Must consider iron deficiency versus recurrence of AML. Admitted to hospitalist service in stable condition. Critical Care Time: Yes Critical care time in (mins) excluding proc time.: 40 Critical care attestation.: If time is entered above; I have spent that time in minutes in the direct care of this critically ill patient, excluding procedure time. 40 minutes of critical care time excluding procedures were used in the care of the patient. Patient required multiple assessments and interventions. I reviewed the electronic medical record. I spoke with consultants involved in the care of the patient. I spoke with the the bedside. ED Disposition Clinical Impression: Microcytic anemia, AML (acute myeloid leukemia) in remission Stroke Qualifiers: CVA mechanism: unspecified Qualified Code(s): I63.9 - Cerebral infarction, unspecified Disposition: DC-09 OP ADMIT IP TO THIS HOSP Is pt being admited?: Yes Does the pt Need Aspirin: No Condition: Stable
--- NOTE | 2019-01-23 22:27 | XRay Report ---
CHEST 1 VIEW INDICATION: left sided weakness trouble with speech COMPARISON: 04/14/2016 FINDINGS: Support devices: None Heart: Stable. Lungs/Pleura: Inspiration is less optimal on today's exam, but I see no convincing evidence of acute pulmonary disease IMPRESSION: 1. No significant change. Signer Name: Joaquim Palmer MD Signed: 01/23/2019 10:23 PM Workstation Name: [id number]
--- NOTE | 2019-01-23 22:31 | History and Physical Report ---
Medications and Allergies Allergies Allergy/AdvReac Type Severity Reaction Status Date / Time ibuprofen Allergy Shortness Verified 08/27/15 11:08 of Breath ketorolac [From Toradol] Allergy Unknown Verified 03/18/17 21:42 tramadol Allergy Shortness Verified 08/27/15 11:08 of Breath cefaclor [From Ceclor] AdvReac Rash Verified 08/27/15 11:08 Home Medications Medication Instructions Recorded Confirmed Last Taken Type Insulin NPH Hum/Reg Insulin Hm 30 unit SQ QHS 08/27/15 04/14/16 08/27/15 History [HumuLIN 70-30 Vial] Insulin NPH Hum/Reg Insulin Hm 40 unit SQ QAM 08/27/15 04/14/16 08/27/15 History [HumuLIN 70-30 Vial] Lisinopril [Zestril TAB] 40 mg PO BID 08/27/15 04/14/16 08/27/15 History Vesnoid BID 08/27/15 08/27/15 History Oxycodone HCl/Acetaminophen 1 each PO Q6HR PRN #14 tablet 01/26/16 04/14/16 Unknown Rx [Percocet 10/325 mg] amLODIPine [Norvasc] 5 mg PO DAILY #30 tab 01/26/16 04/14/16 Unknown Rx Famotidine [Pepcid] 20 mg PO BID #60 tablet 04/16/16 Unknown Rx Insulin NPH Hum/Reg Insulin Hm 40 unit SQ BID #1 vial 04/16/16 Unknown Rx [HumuLIN 70-30 Vial] Oxycodone HCl/Acetaminophen 1 each PO Q6HR PRN #14 tablet 04/16/16 Unknown Rx [Percocet 10/325 mg] Acetaminophen/Codeine [Tylenol 1 tab PO Q6H PRN #12 tab 03/19/17 Unknown Rx /Codeine # 3 tab] Amoxicillin [Amoxicillin TAB] 875 mg PO BID #20 tablet 03/19/17 Unknown Rx Exam - Constitutional Vitals: Temp Pulse Resp BP Pulse Ox 98.4 F 90 28 H 161/87 94 01/23/19 20:50 01/23/19 21:00 01/23/19 21:00 01/23/19 21:00 01/23/19 21:00 Results - Labs CBC & Chem 7: 01/23/19 19:04 10/14/19 19:04 Labs: Abnormal lab results 01/23/19 01/23/19 01/23/19 Range/Units 19:04 19:04 19:25 WBC 14.0 H (4.5-11.0) K/mm3 RBC 3.27 L (3.65-5.03) M/mm3 Hgb 6.7 L (10.1-14.3) gm/dl Hct 22.6 L (30.3-42.9) % MCV 69 L (79-97) fl MCH 21 L (28-32) pg RDW 18.6 H (13.2-15.2) % Plt Count 508 H (140-440) K/mm3 [place] # 0.9 H (0.0-0.8) K/mm3 Seg Neutrophils # 9.1 H (1.8-7.7) K/mm3 Potassium 3.5 L (3.6-5.0) mmol/L Creatinine 0.5 L (0.7-1.2) mg/dL Glucose 148 H (65-100) mg/dL POC Glucose 158 H (70-105)
[2019-01-23] MEDS ORDERED: ROXICODONE PO ONE (22:32)
[2019-01-23] MEDS ORDERED: ZOFRAN IV PRN ×2 (23:58)
[2019-01-23] MEDS ORDERED: ALUM-MAG HYDROX-SIMETH 200-200-20MG/5ML PO PRN (23:58)
[2019-01-23] MEDS ORDERED: SODIUM CHLORIDE FLUSH SYRINGE 10 ML IV PRN (23:58)
[2019-01-23] MEDS ORDERED: D50W (25GM) Syringe IV PRN (23:58)
[2019-01-23] MEDS ORDERED: MILK OF MAGNESIA PO PRN (23:58)
[2019-01-23] MEDS ORDERED: DULCOLAX PR PRN (23:58)
[2019-01-23] MEDS ORDERED: SODIUM CHLORIDE FLUSH SYRINGE 10 ML INJ PRN (23:58)
[2019-01-23] MEDS ORDERED: TYLENOL PO PRN ×2 (23:58)
[2019-01-23] MEDS ORDERED: REGLAN PO PRN (23:58)
[2019-01-23] MEDS ORDERED: PHENERGAN PR PRN (23:58)
[2019-01-24] MEDS ORDERED: ZOFRAN IV PRN (00:09)
[2019-01-24] MEDS ORDERED: ALUM-MAG HYDROX-SIMETH 200-200-20MG/5ML PO PRN (00:09)
[2019-01-24] MEDS ORDERED: PHENERGAN PR PRN (00:09)
[2019-01-24] MEDS ORDERED: ROXICODONE ONE (00:18)
--- NOTE | 2019-01-24 00:29 | History and Physical Report ---
<COLTON ROMERO - Last Filed: 01/24/19 03:45> History of Present Illness Date of examination: 01/23/19 Date of admission: 01/23/19 22:31 Chief complaint: stroke-like symptoms. History of present illness: Pt is a 48 year old female with PMHx of HNT, DM type 2, AML (in remission) who was brought to the ER with c/o stroke-like symptoms. Pt states that she woke up in the morning with weakness on the left side, slurred speech, and left side body ache. Her came home later around 1200 noon and noticed the weakness and the change in her gait and speech, he called EMS and she was taking to the ER for evaluation. Per , pt was last seen around 8pm in her normal state. Pt also reports stomach upset, report nausea, vomiting, she denies headache, she denies dizziness, denies any recent illness, denies fever, denies chills. In the ER, she had a CT of the brain with multiple old infarcts which appear chronic , there is moderate microvascular angiopathy without evidence of acute intracranial hemorrhage. Pt is admitted for further management. Past History Past Medical History: diabetes, hypertension, other (AML) Past Surgical History: No surgical history Social history: no significant social history Medications and Allergies Allergies Allergy/AdvReac Type Severity Reaction Status Date / Time ibuprofen Allergy Shortness Verified 08/27/15 11:08 of Breath ketorolac [From Toradol] Allergy Unknown Verified 03/18/17 21:42 tramadol Allergy Shortness Verified 08/27/15 11:08 of Breath cefaclor [From Ceclor] AdvReac Rash Verified 08/27/15 11:08 Home Medications Medication Instructions Recorded Confirmed Last Taken Type Insulin NPH Hum/Reg Insulin Hm 30 unit SQ QHS 08/27/15 04/14/16 08/27/15 History [HumuLIN 70-30 Vial] Insulin NPH Hum/Reg Insulin Hm 40 unit SQ QAM 08/27/15 04/14/16 08/27/15 History [HumuLIN 70-30 Vial] Lisinopril [Zestril TAB] 40 mg PO BID 08/27/15 04/14/16 08/27/15 History Vesnoid BID 08/27/15 08/27/15 History Oxycodone HCl/Acetaminophen 1 each PO Q6HR PRN #14 tablet 01/26/16 04/14/16 Unknown Rx [Percocet 10/325 mg] amLODIPine [Norvasc] 5 mg PO DAILY #30 tab 01/26/16 04/14/16 Unknown Rx Famotidine [Pepcid] 20 mg PO BID #60 tablet 04/16/16 Unknown Rx Insulin NPH Hum/Reg Insulin Hm 40 unit SQ BID #1 vial 04/16/16 Unknown Rx [HumuLIN 70-30 Vial] Oxycodone HCl/Acetaminophen 1 each PO Q6HR PRN #14 tablet 04/16/16 Unknown Rx [Percocet 10/325 mg] Acetaminophen/Codeine [Tylenol 1 tab PO Q6H PRN #12 tab 03/19/17 Unknown Rx /Codeine # 3 tab] Amoxicillin [Amoxicillin TAB] 875 mg PO BID #20 tablet 03/19/17 Unknown Rx Active Meds: Active Medications Acetaminophen (Tylenol) 650 mg PO Q4H PRN PRN Reason: Pain MILD(1-3)/Fever >100.5/PETER Al Hydrox/Mg Hydrox/Simethicone (Alum-Mag Hydrox-Simeth [phone]/5ml) 30 ml PO Q4H PRN PRN Reason: Indigestion Al Hydrox/Mg Hydrox/Simethicone (Alum-Mag Hydrox-Simeth [phone]/5ml) 30 ml PO Q4H PRN PRN Reason: Indigestion Aspirin (Aspirin) 325 mg PO QDAY [facility] Atorvastatin Calcium (Lipitor) 80 mg PO QHS YONI Bisacodyl (Dulcolax) 10 mg AR QDAY PRN PRN Reason: Constipation Dextrose (D50w (25gm) Syringe) 50 ml IV PRN PRN PRN Reason: Hypoglycemia Famotidine (Pepcid) 20 mg IV BID [facility] Sodium Chloride (Nacl 0.9% 1000 Ml) 1,000 mls @ 100 mls/hr IV DIRECT YONI Magnesium Hydroxide (Milk Of Magnesia) 30 ml PO Q4H PRN PRN Reason: Constipation Metoclopramide HCl (Reglan) 10 mg PO Q6H PRN PRN Reason: Nausea And Vomiting Ondansetron HCl (Zofran) 4 mg IV Q8H PRN PRN Reason: Nausea And Vomiting Ondansetron HCl (Zofran) 4 mg IV Q8H PRN PRN Reason: N/V unrelieved by Reglan Promethazine HCl (Phenergan) 25 mg AR Q6H PRN PRN Reason: Nausea And Vomiting Promethazine HCl (Phenergan) 25 mg AR Q6H PRN PRN Reason: Nausea And Vomiting Sodium Chloride (Sodium Chloride Flush Syringe 10 Ml) 10 ml IV BID YONI Sodium Chloride (Sodium Chloride Flush Syringe 10 Ml) 10 ml IV PRN PRN PRN Reason: LINE FLUSH Review of Systems Ears, nose, mouth and throat: other (facial droop) Musculoskeletal: muscle weakness (left side) Neurological: weakness (right side (arm and leg)), other (slurred speech, facial droop) Exam - Constitutional Vitals: Temp Pulse Resp BP Pulse Ox 98.4 F 90 28 H 161/87 94 01/23/19 20:50 01/23/19 21:00 01/23/19 21:00 01/23/19 21:00 01/23/19 21:00 General appearance: Present: no acute distress, well-nourished - EENT Eyes: Present: EOM intact ENT: hearing intact - Neck Neck: Present: normal ROM - Respiratory Respiratory effort: normal Respiratory: bilateral: CTA - Cardiovascular Rhythm: regular Heart Sounds: Present: systolic murmur (grage 3-4) - Extremities Extremities: no ischemia, No edema, abnormal (weakness) - Abdominal General gastrointestinal: Present: non-tender, non-distended Female genitourinary: Present: deferred - Rectal Rectal Exam: deferred - Integumentary Integumentary: Present: warm - Musculoskeletal Musculoskeletal: strength equal bilaterally, left sided weakness - Psychiatric Psychiatric: cooperative - Neurologic Neurologic: moves all extremities Results - Labs CBC & Chem 7: 01/23/19 19:04 01/23/19 19:04 Labs: Laboratory Last Values WBC 14.0 K/mm3 (4.5-11.0) H 01/23/19 19:04 RBC 3.27 M/mm3 (3.65-5.03) L 01/23/19 19:04 Hgb 6.7 gm/dl (10.1-14.3) L 01/23/19 19:04 Hct 22.6 % (30.3-42.9) L 01/23/19 19:04 MCV 69 fl (79-97) L 01/23/19 19:04 MCH 21 pg (28-32) L 01/23/19 19:04 MCHC 30 % (30-34) 01/23/19 19:04 RDW 18.6 % (13.2-15.2) H 01/23/19 19:04 Plt Count 508 K/mm3 (140-440) H 01/23/19 19:04 Lymph % (Auto) 27.4 % (13.4-35.0) 01/23/19 19:04 [place] % (Auto) 6.5 % (0.0-7.3) 01/23/19 19:04 Eos % (Auto) 0.5 % (0.0-4.3) 01/23/19 19:04 Baso % (Auto) 0.6 % (0.0-1.8) 01/23/19 19:04 Lymph # 3.8 K/mm3 (1.2-5.4) 01/23/19 19:04 [place] # 0.9 K/mm3 (0.0-0.8) H 01/23/19 19:04 Eos # 0.1 K/mm3 (0.0-0.4) 01/23/19 19:04 Baso # 0.1 K/mm3 (0.0-0.1) 01/23/19 19:04 Seg Neutrophils % 65.0 % (40.0-70.0) 01/23/19 19:04 Seg Neutrophils # 9.1 K/mm3 (1.8-7.7) H 01/23/19 19:04 PT 13.8 Sec. (12.2-14.9) 01/23/19 19:04 INR 1.09 (0.87-1.13) 01/23/19 19:04 APTT 27.7 Sec. (24.2-36.6) 01/23/19 19:04 Thrombin Time 15.5 Sec. (15.1-19.6) 01/23/19 19:04 Sodium 139 mmol/L (137-145) 01/23/19 19:04 Potassium 3.5 mmol/L (3.6-5.0) L 01/23/19 19:04 Chloride 99.1 mmol/L (98-107) 01/23/19 19:04 Carbon Dioxide 22 mmol/L (22-30) 01/23/19 19:04 Anion Gap 21 mmol/L 01/23/19 19:04 BUN 8 mg/dL (7-17) 01/23/19 19:04 Creatinine 0.5 mg/dL (0.7-1.2) L 01/23/19 19:04 Estimated GFR > 60 ml/min 01/23/19 19:04 BUN/Creatinine Ratio 16 % 01/23/19 19:04 Glucose 148 mg/dL (65-100) H 01/23/19 19:04 POC Glucose 158 (70-105) H 01/23/19 19:25 Calcium 9.3 mg/dL (8.4-10.2) 01/23/19 19:04 Troponin T < 0.010 ng/mL (0.00-0.029) 01/23/19 19:04 Assessment and Plan Assessment and plan: Acute ischemic stroke with left-sided weakness Multiple old infarct per CT Moderate mocrovascular angiopathy Hypertensive urgency H/o HTN Heart murmur H/o AML Anemia (etiology unclear) Hypokalemia Plan: Admit pt to [facility] for acute stroke (no TPA) Consult neurology for evaluation in am IVF for hydration Keep NPO until bedside swallow study Continue neuro check Orthostatic VS 2D echo Repeat H&H and transfuse PRN MRI of the brain MRA of the head and neck DVT prophylaxis Advance Directives: Yes VTE prophylaxis?: Mechanical Plan of care discussed with patient/family: Yes <YOANA WELLS - Last Filed: 01/24/19 03:54> History of Present Illness Date of admission: 01/23/19 22:31 Medications and Allergies Active Meds: Active Medications Acetaminophen (Tylenol) 650 mg PO Q4H PRN PRN Reason: Pain MILD(1-3)/Fever >100.5/PETER Al Hydrox/Mg Hydrox/Simethicone (Alum-Mag Hydrox-Simeth [phone]/5ml) 30 ml PO Q4H PRN PRN Reason: Indigestion Aspirin (Aspirin) 325 mg PO QDAY [facility]I Atorvastatin Calcium (Lipitor) 80 mg PO QHS YONI Bisacodyl (Dulcolax) 10 mg AR QDAY PRN PRN Reason: Constipation Dextrose (D50w (25gm) Syringe) 50 ml IV PRN PRN PRN Reason: Hypoglycemia Famotidine (Pepcid) 20 mg IV BID [facility] Last Admin: 01/24/19 01:33 Dose: 20 mg Documented by: Sodium Chloride (Nacl 0.9% 1000 Ml) 1,000 mls @ 100 mls/hr IV DIRECT YONI Last Admin: 01/24/19 03:30 Dose: 100 mls/hr Documented by: Magnesium Hydroxide (Milk Of Magnesia) 30 ml PO Q4H PRN PRN Reason: Constipation Metoclopramide HCl (Reglan) 10 mg PO Q6H PRN PRN Reason: Nausea And Vomiting Ondansetron HCl (Zofran) 4 mg IV Q8H PRN PRN Reason: Nausea And Vomiting Promethazine HCl (Phenergan) 25 mg AR Q6H PRN PRN Reason: Nausea And Vomiting Sodium Chloride (Sodium Chloride Flush Syringe 10 Ml) 10 ml IV BID [facility] Sodium Chloride (Sodium Chloride Flush Syringe 10 Ml) 10 ml IV PRN PRN PRN Reason: LINE FLUSH Exam - Constitutional Vitals: Temp Pulse Resp BP Pulse Ox 98.4 F 88 27 H 106/88 96 01/23/19 20:50 01/24/19 03:00 01/24/19 03:00 01/24/19 03:00 01/24/19 03:00 Results - Labs CBC & Chem 7: 01/23/19 19:04 01/23/19 19:04 Labs: Laboratory Last Values WBC 14.0 K/mm3 (4.5-11.0) H 01/23/19 19:04 RBC 3.27 M/mm3 (3.65-5.03) L 01/23/19 19:04 Hgb 6.7 gm/dl (10.1-14.3) L 01/23/19 19:04 Hct 22.6 % (30.3-42.9) L 01/23/19 19:04 MCV 69 fl (79-97) L 01/23/19 19:04 MCH 21 pg (28-32) L 01/23/19 19:04 MCHC 30 % (30-34) 01/23/19 19:04 RDW 18.6 % (13.2-15.2) H 01/23/19 19:04 Plt Count 508 K/mm3 (140-440) H 01/23/19 19:04 Lymph % (Auto) 27.4 % (13.4-35.0) 01/23/19 19:04 [place] % (Auto) 6.5 % (0.0-7.3) 01/23/19 19:04 Eos % (Auto) 0.5 % (0.0-4.3) 01/23/19 19:04 Baso % (Auto) 0.6 % (0.0-1.8) 01/23/19 19:04 Lymph # 3.8 K/mm3 (1.2-5.4) 01/23/19 19:04 [place] # 0.9 K/mm3 (0.0-0.8) H 01/23/19 19:04 Eos # 0.1 K/mm3 (0.0-0.4) 01/23/19 19:04 Baso # 0.1 K/mm3 (0.0-0.1) 01/23/19 19:04 Seg Neutrophils % 65.0 % (40.0-70.0) 01/23/19 19:04 Seg Neutrophils # 9.1 K/mm3 (1.8-7.7) H 01/23/19 19:04 PT 13.8 Sec. (12.2-14.9) 01/23/19 19:04 INR 1.09 (0.87-1.13) 01/23/19 19:04 APTT 27.7 Sec. (24.2-36.6) 01/23/19 19:04 Thrombin Time 15.5 Sec. (15.1-19.6) 01/23/19 19:04 Sodium 139 mmol/L (137-145) 01/23/19 19:04 Potassium 3.5 mmol/L (3.6-5.0) L 01/23/19 19:04 Chloride 99.1 mmol/L (98-107) 01/23/19 19:04 Carbon Dioxide 22 mmol/L (22-30) 01/23/19 19:04 Anion Gap 21 mmol/L 01/23/19 19:04 BUN 8 mg/dL (7-17) 01/23/19 19:04 Creatinine 0.5 mg/dL (0.7-1.2) L 01/23/19 19:04 Estimated GFR > 60 ml/min 01/23/19 19:04 BUN/Creatinine Ratio 16 % 01/23/19 19:04 Glucose 148 mg/dL (65-100) H 01/23/19 19:04 POC Glucose 158 (70-105) H 01/23/19 19:25 Calcium 9.3 mg/dL (8.4-10.2) 01/23/19 19:04 Troponin T < 0.010 ng/mL (0.00-0.029) 01/23/19 19:04 Assessment and Plan Assessment and plan: 48-year-old woman with a history of hypertension, diabetes, GERD, chronic pain, AML comes emergency room with complaints of right-sided weakness, numbness and slurred speech. Agree with workup for stroke, in addition transfuse packed red blood cells for anemia secondary to AML, consult Dr. Valente. No signs or symptoms bleeding
[2019-01-24] MEDS ORDERED: PEPCID IV ONE (01:22)
[2019-01-24] MEDS: PEPCID IV SCH ×3 (01:33→21:50)
[2019-01-24] MEDS ORDERED: NACL 0.9% 500 ML 500 ML IV ONE (02:18)
[2019-01-24] MEDS ORDERED: NACL 0.9% 1000 ML 1,000 ML ONE (03:35)
[2019-01-24] MEDS ORDERED: MORPHINE IV ONE (03:41)
[2019-01-24] MEDS ORDERED: MORPHINE ONE (03:47)
[2019-01-24 04:33] LABS: Hematocrit 19.8 % (30.3-42.9); Hemoglobin 5.9 gm/dl (10.1-14.3)
[2019-01-24 04:53] LABS: Color,Urine Yellow (Yellow)
[2019-01-24 04:54] LABS: Bacteria,Urine 1+ /HPF (Negative); Bilirubin,Urine NEG (Negative); Blood,Urine LG (Negative); Urobilinogen,Urine < 2.0 mg/dL (<2.0)
[2019-01-24 04:56] LABS: Mucus,Urine FEW /HPF
[2019-01-24 05:20] LABS: Chol/HDL Ratio 3.83 %
--- NOTE | 2019-01-24 08:21 | Event Note ---
Date: 01/24/19 [id number]
[2019-01-24] MEDS ORDERED: PERCOCET 5/325 ONE (08:29)
[2019-01-24] MEDS: PERCOCET 5/325 PO PRN ×4 (08:31→23:27)
[2019-01-24] MEDS ORDERED: FERRLECIT 125 MG in NACL 0.9% 100 ML IV ONE (09:00)
--- NOTE | 2019-01-24 10:18 | Magnetic Resonance Report ---
Nonenhanced MR scan of the brain: INDICATION / CLINICAL INFORMATION: Weakness and numbness on the left side TECHNIQUE: Multiplanar, multisequence MR images of the brain were obtained. Defects are probably from the jose COMPARISON: CT scan of the brain from 01/23/2019 FINDINGS: BRAIN / INTRACRANIAL CONTENTS: No acute ischemia, acute hemorrhage, mass effect, midline shift, or hy drocephalus. Chronic changes are seen in the right temporal occipital border zone and in the right i nferior the left hemisphere suggestive of chronic ischemia. In addition, susceptibility changes are s een at both these lesions probably from old hemorrhage. Deep hemispheric white matter lesions are see n in both cerebral hemispheres especially in the centrum semiovale wall. These lesions are more promi nent on the right side. Chronic ischemic changes are seen in the corpus stratum. These lesions appear to be chronic ischemia. However, given the age, please obtain sagittal and coronal FLAIR images to r ule out demyelinating plaques. Juxtacortical lesions are seen bilaterally probably ischemic. CRANIOCERVICAL JUNCTION: No significant abnormality. VASCULAR FLOW-VOIDS: No significant abnormality. ORBITS: No significant abnormality of visualized orbits. SINUSES / MASTOIDS: No significant abnormality of visualized sinuses and mastoid air cells. ADDITIONAL FINDINGS: None. IMPRESSION: I do not see MR findings to suggest acute infarction Chronic ischemic changes in the right temporo-occipital border zone and right cerebellar hemisphere w ith old hemorrhage Deep hemispheric white matter lesions; these appear to be chronic ischemia; however, considering the age, please obtain sagittal and coronal FLAIR images to rule out demyelinating plaques. Signer Name: Aj Mcneil MD Signed: 01/24/2019 10:14 AM Workstation Name: [email or web address]
--- NOTE | 2019-01-24 10:19 | Magnetic Resonance Report ---
MR MRA/MRV head wo con INDICATION / CLINICAL INFORMATION: 48 years Female; stroke. TECHNIQUE: 3-D time of flight. NASCET type criteria used to evaluate stenoses. Some motion artifact present. COMPARISON: None available. FINDINGS: INTERNAL CAROTID ARTERIES: No significant narrowing appreciated. There is suggestion of areas of mode rate narrowing where the right ICA pass into the carotid canal, although this finding may be related to motion artifact. VERTEBROBASILAR SYSTEM: No significant narrowing appreciated. Note, the distal, nondominant right dung tebral artery is not well visualized on reconstructed images, but appears to be patent when reviewing source images. DISTAL BRANCHES: Distal branches of the anterior, middle, and posterior cerebral arteries are fairly symmetric in appearance and number. Short segment, focal stenosis is suggested in the proximal A1 seg ments bilaterally, as well as in the proximal P1 segment on the right. Area of mild narrowing seen in the mid posterior cerebral artery on the right, more distally. ANEURYSM: None identified. IMPRESSION: Areas of narrowing identified, as described above. Signer Name: Osvaldo Garcia MD, III Signed: 01/24/2019 10:15 AM Workstation Name: [id number]
[2019-01-24 11:06] LABS: Iron 16 ug/dL (37-170); Total Iron Binding Capacity 458 mcg/dL (250-450)
--- NOTE | 2019-01-24 13:29 | Progress Note ---
Assessment and Plan Acute ischemic stroke with left-sided weakness - suspected - Placed on stroke protocol - Continue aspirin and statin - Status post MRI today- official results pending - Follow neurology recommendation - Consulted PTOT Multiple old infarct per CT - Continue aspirin and statin for now Hypertensive urgency - Adjust medications, IV hydralazine as needed to keep SBP lower than 160 H/o AML - On remission, has not had follow-up in years - Dr. Valente consulted Anemia of chronic disease vs microcytic anemia - Transfuse as needed - We will be conservative with multiple units of blood transfusion due to development of cross antibody - Workup showed iron deficiency, ordered IV iron transfusion Diabetes mellitus type 2 - Consistent carb diet, long-acting insulin and SSI as needed Hypokalemia, replete and repeat BMP Leukocytosis, likely reactive DVT prophylaxis, SCD Brief History: Patient is a 48 year old female with PMHx of HNT, DM type 2, AML (in remission) who was brought to the ER with c/o weakness on the left side, slurred speech, and left side body ache. EMS was called and she was taking to the ER for evaluation. In the ER, she had a CT of the brain with multiple old infarcts which appear chronic , there is moderate microvascular angiopathy without evidence of acute intracranial hemorrhage. Pt was admitted for further management. Hospitalist Physical exam: GENERAL: well-developed obese female lying on bed appeared to be in no discomfort. HEENT: Normocephalic. Atraumatic. No conjunctival congestion or icterus. Patient has moist mucous membranes. NECK: Supple. Trachea midline. CHEST/LUNGS: Clear to auscultated bilaterally, breathing nonlabored. No wheezes crackles or rhonchi. HEART/CARDIOVASCULAR: Regular in rate and rhythm. S1 and S2 positive. ABDOMEN: Abdomen is soft, nontender. Patient has normal bowel sounds. SKIN: There is no rash. Warm and dry. NEURO: Follows command. Cranial nerves intact, restricted movement on the left side due to pain MUSCULOSKELETAL: + Painful movements on the left upper and lower extremity EXTRIMITY: No edema, no cyanosis or clubbing. PSYCH: Cooperative. Subjective Date of service: 01/24/19 Interval history: Patient seen and examined. Medical records and medication list reviewed. No acute event overnight noted by the RN. Patient denies any chest pain or difficulty breathing. Patient is tolerating diet. Complaining of a left-sided tingling and pain, states that she has chronic pain on her left arm but got worse in last couple days She also states that she visits pain management clinic regularly but recently because of financial constraints and could not follow up with the pain management clinic. She completed her MRI today Hemoglobin 5.9, waiting on blood transfusion Discussed plan of care at bedside with patient. Objective - Constitutional Vitals: Vital Signs - 12hr 01/24/19 01/24/19 01/24/19 01:30 02:00 03:00 Temperature Pulse Rate 94 H 90 88 Respiratory 15 24 27 H Rate Blood Pressure 106/88 106/88 106/88 O2 Sat by Pulse 99 99 96 Oximetry 01/24/19 01/24/19 01/24/19 03:20 03:30 03:40 Temperature Pulse Rate 84 95 H 84 Respiratory 22 17 22 Rate Blood Pressure O2 Sat by Pulse 99 99 99 Oximetry 01/24/19 01/24/19 01/24/19 03:50 04:00 04:10 Temperature Pulse Rate 86 85 87 Respiratory 13 13 23 Rate Blood Pressure O2 Sat by Pulse 99 99 99 Oximetry 01/24/19 01/24/19 01/24/19 04:20 04:30 04:40 Temperature Pulse Rate 87 87 Respiratory 24 25 H Rate Blood Pressure O2 Sat by Pulse 98 98 97 Oximetry 01/24/19 01/24/19 01/24/19 04:50 05:00 05:10 Temperature Pulse Rate Respiratory Rate Blood Pressure O2 Sat by Pulse 98 99 97 Oximetry 01/24/19 01/24/19 01/24/19 05:20 05:30 05:40 Temperature Pulse Rate Respiratory Rate Blood Pressure O2 Sat by Pulse 97 98 98 Oximetry 01/24/19 01/24/19 01/24/19 06:17 06:20 06:30 Temperature Pulse Rate 85 86 Respiratory 19 23 Rate Blood Pressure 134/90 134/90 153/83 O2 Sat by Pulse Oximetry 01/24/19 01/24/19 01/24/19 06:40 06:50 07:00 Temperature Pulse Rate 87 88 86 Respiratory 21 25 H 17 Rate Blood Pressure 153/83 165/91 152/88 O2 Sat by Pulse Oximetry 01/24/19 01/24/19 01/24/19 07:10 07:20 07:30 Temperature Pulse Rate 85 83 84 Respiratory 21 21 20 Rate Blood Pressure 152/88 141/87 165/91 O2 Sat by Pulse Oximetry 01/24/19 01/24/19 01/24/19 07:40 07:50 08:00 Temperature Pulse Rate 87 93 H 91 H Respiratory 26 H 18 18 Rate Blood Pressure 169/91 169/91 169/91 O2 Sat by Pulse Oximetry 01/24/19 01/24/19 01/24/19 08:31 08:45 10:13 Temperature 98.6 F 98.2 F Pulse Rate 90 Respiratory 18 18 Rate Blood Pressure 153/87 O2 Sat by Pulse 94 Oximetry 01/24/19 10:27 Temperature Pulse Rate Respiratory Rate Blood Pressure O2 Sat by Pulse 98 Oximetry - Labs CBC & Chem 7: 01/25/19 07:10 01/25/19 07:10 Labs: Abnormal lab results 01/23/19 01/23/19 01/23/19 Range/Units 19:04 19:04 19:25 WBC 14.0 H (4.5-11.0) K/mm3 RBC 3.27 L (3.65-5.03) M/mm3 Hgb 6.7 L (10.1-14.3) gm/dl Hct 22.6 L (30.3-42.9) % MCV 69 L (79-97) fl MCH 21 L (28-32) pg RDW 18.6 H (13.2-15.2) % Plt Count 508 H (140-440) K/mm3 [place] # 0.9 H (0.0-0.8) K/mm3 Seg Neutrophils # 9.1 H (1.8-7.7) K/mm3 Potassium 3.5 L (3.6-5.0) mmol/L Creatinine 0.5 L (0.7-1.2) mg/dL Glucose 148 H (65-100) mg/dL POC Glucose 158 H (70-105) Iron (37-170) ug/dL TIBC (250-450) mcg/dL Ferritin (13.0-400.0) ng/mL Triglycerides (2-149) mg/dL HDL Cholesterol (40-59) mg/dL Vitamin B12 (211-911) pg/mL Ur Specific [place] (1.003-1.030) Urine WBC (Auto) (0.0-6.0) /HPF U Epithel Cells (Auto) (0-13.0) /HPF Crossmatch 01/23/19 01/24/19 01/24/19 Range/Units Unknown 03:51 03:51 WBC (4.5-11.0) K/mm3 RBC (3.65-5.03) M/mm3 Hgb (10.1-14.3) gm/dl Hct (30.3-42.9) % MCV (79-97) fl MCH (28-32) pg RDW (13.2-15.2) % Plt Count (140-440) K/mm3 [place] # (0.0-0.8) K/mm3 Seg Neutrophils # (1.8-7.7) K/mm3 Potassium (3.6-5.0) mmol/L Creatinine (0.7-1.2) mg/dL Glucose (65-100) mg/dL POC Glucose (70-105) Iron (37-170) ug/dL TIBC (250-450) mcg/dL Ferritin (13.0-400.0) ng/mL Triglycerides 181 H (2-149) mg/dL HDL Cholesterol 36 L (40-59) mg/dL Vitamin B12 (211-911) pg/mL Ur Specific [place] 1.033 H (1.003-1.030) Urine WBC (Auto) 11.0 H (0.0-6.0) /HPF U Epithel Cells (Auto) 48.0 H (0-13.0) /HPF Crossmatch See Detail 01/24/19 01/24/19 01/24/19 Range/Units 03:51 06:33 10:11 WBC (4.5-11.0) K/mm3 RBC (3.65-5.03) M/mm3 Hgb 5.9 L* (10.1-14.3) gm/dl Hct 19.8 L* (30.3-42.9) % MCV (79-97) fl MCH (28-32) pg RDW (13.2-15.2) % Plt Count (140-440) K/mm3 [place] # (0.0-0.8) K/mm3 Seg Neutrophils # (1.8-7.7) K/mm3 Potassium (3.6-5.0) mmol/L Creatinine (0.7-1.2) mg/dL Glucose (65-100) mg/dL POC Glucose 164 H (70-105) Iron 16 L (37-170) ug/dL TIBC 458 H (250-450) mcg/dL Ferritin (13.0-400.0) ng/mL Triglycerides (2-149) mg/dL HDL Cholesterol (40-59) mg/dL Vitamin B12 (211-911) pg/mL Ur Specific [place] (1.003-1.030) Urine WBC (Auto) (0.0-6.0) /HPF U Epithel Cells (Auto) (0-13.0) /HPF Crossmatch 01/24/19 01/24/19 01/24/19 Range/Units 10:11 10:11 10:26 WBC (4.5-11.0) K/mm3 RBC (3.65-5.03) M/mm3 Hgb (10.1-14.3) gm/dl Hct (30.3-42.9) % MCV (79-97) fl MCH (28-32) pg RDW (13.2-15.2) % Plt Count (140-440) K/mm3 [place] # (0.0-0.8) K/mm3 Seg Neutrophils # (1.8-7.7) K/mm3 Potassium (3.6-5.0) mmol/L Creatinine (0.7-1.2) mg/dL Glucose (65-100) mg/dL POC Glucose 158 H (70-105) Iron (37-170) ug/dL TIBC (250-450) mcg/dL Ferritin 5.2 L (13.0-400.0) ng/mL Triglycerides (2-149) mg/dL HDL Cholesterol (40-59) mg/dL Vitamin B12 967.4 H (211-911) pg/mL Ur Specific [place] (1.003-1.030) Urine WBC (Auto) (0.0-6.0) /HPF U Epithel Cells (Auto) (0-13.0) /HPF Crossmatch
[2019-01-24] MEDS: NACL 0.9% 1000 ML 1,000 ML IV SCH ×2 (13:52)
[2019-01-24] MEDS: ASPIRIN PO SCH (13:53)
[2019-01-24] MEDS: SODIUM CHLORIDE FLUSH SYRINGE 10 ML IV SCH ×2 (13:54→21:50)
[2019-01-24] MEDS: APRESOLINE IV PRN ×2 (15:35→19:19)
[2019-01-24] MEDS: ZESTRIL PO SCH (17:29)
--- NOTE | 2019-01-25 00:16 | Consultation ---
REFERRING PHYSICIAN: Dr. Austin Benjamin. REASON FOR CONSULTATION: Anemia, history of AML. HISTORY OF PRESENT ILLNESS: I saw the patient, a 48-year-old female with past history of hypertension, diabetes, came to the hospital because of weakness of the left side with slurred speech and body ache. As per the information, has been noticed gait and speech abnormality. 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 She was found to be severely anemic. She has history of heavy cycles for at least 6 months. The patient says about 7 years ago, she was diagnosed with AML and she was transferred to [place]. 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 She has not been to any physician for the last 3-4 years. At this time, she is complaining of abdominal discomfort. PAST MEDICAL HISTORY: Diabetes, hypertension, AML, likely M3 based on history. PAST SURGICAL HISTORY: None. SOCIAL HISTORY: None. ALLERGIES: IBUPROFEN, KETOROLAC. MEDICATIONS: In 2016, she was on vesanoid and present medications include aspirin, atorvastatin and Pepcid. PHYSICAL EXAMINATION: VITAL SIGNS: Temperature 98.4, pulse 90, respirations 19, BP 106/88. HEENT: Pallor present, no icterus. NECK: No neck lymph nodes. HEART: S1, S2. LUNGS: Clear to auscultation. ABDOMEN: Soft. Tenderness present. No guarding. EXTREMITIES: No calf tenderness. NEUROLOGIC: Alert, awake, oriented. LABORATORY DATA: White cell 14, hemoglobin 6.7, MCV 69, platelets 508, potassium 3.5, creatinine 0.5, calcium 9.3. ASSESSMENT: 1. Microcytic anemia, likely iron deficiency. We will investigate. We will look into IV iron. Blood transfusion has been ordered as per the information. 2. Thrombocytosis, likely reactive. 3. Leukocytosis. This may be reactive. The patient has a history of acute myeloid leukemia M3. We will review the counts. 4. For acute myeloid leukemia M3, she has not been to any physician. She was diagnosed 7 years ago and went to [place] where she received treatment and she was on vesanoid for 3 months. 5. History of diabetes. 6. History of hypertension. 7. Admitted for possible stroke with slurred speech, numbness and right-sided weakness. Some of her symptoms are because of anemia. 8. Radiology mentions old infarcts. [facility]# [id number] DENNIS/LINDA
[2019-01-25] MEDS: PERCOCET 5/325 PO PRN ×2 (05:24→11:57)
[2019-01-25] MEDS: NACL 0.9% 1000 ML 1,000 ML IV SCH (05:24)
--- NOTE | 2019-01-25 07:20 | Hem/Onc Progress Note ---
Assessment and Plan 1. Microcytic anemia, likely iron deficiency. We will investigate. s/p IV iron. Blood transfusion has been ordered as per the information. 2. Thrombocytosis, likely reactive. 3. Leukocytosis. This may be reactive. The patient has a history of acute myeloid leukemia M3. We will review the counts. 4. For acute myeloid leukemia M3, she has not been to any physician. She was diagnosed 7 years ago and went to [place] where she received treatment and she was on vesanoid for 3 months. 5. History of diabetes. 6. History of hypertension. 7. Admitted for possible stroke with slurred speech, numbness and right-sided weakness. Some of her symptoms are because of anemia. 8. Radiology mentions old infarcts. S/p IV iron OP follow up an option - if stable labs today pending d/w dr negron - Patient Problems (1) Microcytic anemia Current Visit: Yes Status: Acute Subjective Date of service: 01/25/19 Principal diagnosis: anemia Interval history: s/p prbc Objective - Exam Narrative Exam: Pain - abdo discomfort General appearance - no acute distress Performance status - limited self care Eyes - no icterus ENT - no bleeding LNs cervical not palpable Neck - no LN Respiratory Normal Breath sounds - CTA anteriorly CVS S1 S2 + Extremities no edema General GI Soft - distended Rectal deferred female - deferred Skin warm Musculoskeletal moves limbs Neurologically - alert awake - Constitutional Vitals: Last Vital Signs Temp 98.5 F 01/25/19 04:40 Pulse 86 01/25/19 04:40 Resp 16 01/25/19 04:40 BP 149/85 01/25/19 04:40 Pulse Ox 96 01/25/19 04:40 - Labs Lab Results: Laboratory Results - last 24 hr 01/24/19 01/24/19 01/24/19 03:51 10:11 10:11 POC Glucose Iron 16 L TIBC 458 H Ferritin 5.2 L Vitamin B12 Folate Blood Type O NEGATIVE Antibody Screen Negative Crossmatch See Detail 01/24/19 01/24/19 01/24/19 10:11 10:11 10:26 POC Glucose 158 H Iron TIBC Ferritin Vitamin B12 967.4 H Folate > 20.0 Blood Type Antibody Screen Crossmatch 01/24/19 01/24/19 15:34 21:07 POC Glucose 139 H 124 H Iron TIBC Ferritin Vitamin B12 Folate Blood Type Antibody Screen Crossmatch Medications & Allergies - Medications Allergies/Adverse Reactions: Allergies ibuprofen Allergy (Verified 08/27/15 11:08) Shortness of Breath ketorolac [From Toradol] Allergy (Verified 03/18/17 21:42) Unknown tramadol Allergy (Verified 08/27/15 11:08) Shortness of Breath cefaclor [From Ceclor] Adverse Reaction (Verified 08/27/15 11:08) Rash Home Medications: Home Medications Medication Instructions Recorded Confirmed Last Taken Type Lisinopril [Zestril TAB] 40 mg PO DAILY 08/27/15 01/24/19 08/27/15 History Famotidine [Pepcid] 20 mg PO BID #60 tablet 04/16/16 01/24/19 Unknown Rx Insulin NPH Hum/Reg Insulin Hm 60 unit SQ BID 01/24/19 01/24/19 Unknown History [HumuLIN 70-30 Vial] Active Medications: Generic Name Dose Route Start Last Admin Trade Name Freq PRN Reason Stop Dose Admin Acetaminophen 650 mg 01/23/19 23:58 01/25/19 05:25 Tylenol PO 650 mg Q4H PRN Administration Pain MILD(1-3)/Fever >100.5/PETER Al Hydrox/Mg Hydrox/Simethicone 30 ml 01/23/19 23:58 Alum-Mag Hydrox-Simeth 222-080-08pw/5ml PO Q4H PRN Indigestion Aspirin 325 mg 01/24/19 10:00 01/24/19 13:53 Aspirin PO 325 mg QDAY YONI Administration Atorvastatin Calcium 80 mg 01/24/19 22:00 01/24/19 21:50 Lipitor PO 80 mg QHS YONI Administration Bisacodyl 10 mg 01/23/19 23:58 Dulcolax MO QDAY PRN Constipation Dextrose 50 ml 01/23/19 23:58 D50w (25gm) Syringe IV PRN PRN Hypoglycemia Famotidine 20 mg 01/24/19 01:00 01/24/19 21:50 Pepcid IV 20 mg BID YONI Administration Hydralazine HCl 5 mg 01/24/19 15:30 01/24/19 19:19 Apresoline IV 5 mg Q30MIN PRN Administration Hypertension Sodium Chloride 1,000 mls @ 100 mls/hr 01/23/19 23:45 01/25/19 05:24 Nacl 0.9% 1000 Ml IV 100 mls/hr DIRECT YONI Administration Insulin Human Isoph/Insulin Regular 30 unit 01/24/19 17:00 01/24/19 20:41 Humulin 70/30 SUB-Q Not Given BIDDIAB YONI Lisinopril 40 mg 01/24/19 16:00 01/24/19 17:29 Zestril PO 40 mg DAILY YONI Administration Magnesium Hydroxide 30 ml 01/23/19 23:58 Milk Of Magnesia PO Q4H PRN Constipation Metoclopramide HCl 10 mg 01/23/19 23:58 Reglan PO Q6H PRN Nausea And Vomiting Ondansetron HCl 4 mg 01/23/19 23:58 Zofran IV Q8H PRN Nausea And Vomiting Oxycodone/Acetaminophen 2 tab 01/24/19 18:05 01/25/19 05:24 Percocet 5/325 PO 2 tab Q6H PRN Administration Pain, Moderate (4-6) Promethazine HCl 25 mg 01/23/19 23:58 Phenergan MO Q6H PRN Nausea And Vomiting Sodium Chloride 10 ml 01/24/19 10:00 01/24/19 21:50 Sodium Chloride Flush Syringe 10 Ml IV 10 ml BID YONI Administration Sodium Chloride 10 ml 01/23/19 23:58 Sodium Chloride Flush Syringe 10 Ml IV PRN PRN LINE FLUSH
[2019-01-25 08:02] LABS: Basophils # (Auto) 0.1 K/mm3 (0.0-0.1); Basophils % (Auto) 0.8 % (0.0-1.8); Eosinophils # (Auto) 0.2 K/mm3 (0.0-0.4); Hematocrit 22.1 % (30.3-42.9); Hemoglobin 6.8 gm/dl (10.1-14.3); Lymphocytes # (Auto) 2.4 K/mm3 (1.2-5.4); Lymphocytes % (Auto) 24.9 % (13.4-35.0); Mean Corpuscular HGB Conc 31 % (30-34); Mean Corpuscular Volume 71 fl (79-97); Monocytes # (Auto) 0.9 K/mm3 (0.0-0.8); Monocytes % (Auto) 8.8 % (0.0-7.3); Platelet Count 407 K/mm3 (140-440); Red Blood Count 3.12 M/mm3 (3.65-5.03)
[2019-01-25] MEDS ORDERED: FERRLECIT 125 MG in NACL 0.9% 100 ML IV ONE (08:17)
[2019-01-25 08:19] LABS: BUN/Creatinine Ratio 12; Blood Urea Nitrogen 6 mg/dL (7-17); Hemolysis Index 0
[2019-01-25 08:30] VITALS: BP 144/83
[2019-01-25] MEDS ORDERED: ZESTRIL PO SCH (10:00)
[2019-01-25] MEDS ORDERED: COREG PO SCH (10:00)
[2019-01-25] MEDS ORDERED: PEPCID PO SCH (10:00)
[2019-01-25] MEDS: ASPIRIN PO SCH (10:09)
[2019-01-25] MEDS: ZESTRIL PO SCH (10:12)
[2019-01-25] MEDS: SODIUM CHLORIDE FLUSH SYRINGE 10 ML IV SCH (10:13)
--- NOTE | 2019-01-25 14:56 | Discharge Summary ---
Providers - Providers Date of Admission: 01/23/19 22:31 Date of discharge: 01/25/19 Attending physician: JANNETH ROBERTSON 01/23/19 23:59 Consult to Case Management [CONS] Routine Services Needed at Discharge: Physical Therapy Occupational Therapy Notified:: case management Consult to Dietitian/Nutrition [CONS] Routine Physician Instructions: Reason For Exam: Reason for Consult: Nutrition Recommendations Reason for Consult: Diet education Physical Therapy Evaluation and Treat [CONS] Routine Comment: Reason For Exam: Neuro deficits 01/24/19 00:09 Occupational Therapy Evaluate and Treat [CONS] Routine Comment: Reason For Exam: Neuro deficits 01/24/19 02:19 Consult to Physician [CONS] Routine Comment: Consulting Provider: AMANDA BOSS Physician Instructions: Reason For Exam: AML/ANEMIA Primary care physician: RAMON BARGER Hospitalization Condition: Stable Pertinent studies: CXR head CT MRi brain/MRA head/neck 2d echo Hospital course: Patient is a 48 year old female with PMHx of HNT, DM type 2, AML (in remission) who was brought to the ER with c/o weakness on the left side, slurred speech, and left side body ache. EMS was called and she was taking to the ER for evaluation. In the ER, she had a CT of the brain with multiple old infarcts which appear chronic , there is moderate microvascular angiopathy without evidence of acute intracranial hemorrhage. Pt was admitted for further management. Discharge diagnosis and management: left-sided pain with weakness - likely from neuropathy - recommended lyrica - Acute CVA suspected but ruled out with n egative MRI - Placed on stroke protocol, Continue aspirin and statin - Consulted PTOT Multiple old infarct per CT - Continue aspirin and statin for now Hypertensive urgency - Adjust medications, given IV hydralazine as needed to keep SBP lower than 160 H/o AML - On remission, has not had follow-up in years - Dr. Valente consulted and will f/u with him outpt Anemia of chronic disease vs microcytic anemia from menorrhagia - Transfused 1 unit of PRBC - We will be conservative with multiple units of blood transfusion due to development of cross antibody - Workup showed iron deficiency, ordered IV iron transfusion - recommended outpt f/u with obg/education counselor Diabetes mellitus type 2 - Managed with Consistent carb diet, long-acting insulin and SSI as needed Hypokalemia, repleted and followed BMP Leukocytosis, likely reactive, resolved DVT prophylaxis, SCD Hospitalist Physical exam: GENERAL: well-developed obese female lying on bed appeared to be in no discomfort. HEENT: Normocephalic. Atraumatic. No conjunctival congestion or icterus. Patient has moist mucous membranes. NECK: Supple. Trachea midline. CHEST/LUNGS: Clear to auscultated bilaterally, breathing nonlabored. No wheezes crackles or rhonchi. HEART/CARDIOVASCULAR: Regular in rate and rhythm. S1 and S2 positive. ABDOMEN: Abdomen is soft, nontender. Patient has normal bowel sounds. SKIN: There is no rash. Warm and dry. NEURO: Follows command. Cranial nerves intact, restricted movement on the left side due to pain MUSCULOSKELETAL: + Painful movements on the left upper and lower extremity EXTRIMITY: No edema, no cyanosis or clubbing. PSYCH: Cooperative. Disposition: [id number] HOME UNDER HOME [facility] Time spent for discharge: 34 minutes Core Measure Documentation - Palliative Care Palliative Care/ Comfort Measures: Not Applicable - Core Measures Any of the following diagnoses?: history only Exam - Constitutional Vitals: Temp Pulse Resp BP Pulse Ox 98.4 F 78 20 144/83 95 01/25/19 07:23 01/25/19 10:12 01/25/19 11:57 01/25/19 10:12 01/25/19 07:23 Plan Activity: fall precautions Diet: diabetic Special Instructions: record daily BP diary, record blood sugar diary Follow up with: RAMON BARGER MD [Primary Care Provider] - 7 Days Prescriptions: Pravastatin [Pravachol] 40 mg PO QHS #30 tablet Carvedilol [Coreg] 6.25 mg PO BID #60 tablet Aspirin EC [Halfprin EC] 81 mg PO QDAY #30 tablet. Potassium Chloride [K-Dur] 20 meq PO QDAY #4 tablet Pregabalin [Lyrica] 75 mg PO DAILY #30 capsule oxyCODONE /ACETAMINOPHEN [Percocet 5/325 mg] 2 tab PO Q6H PRN #10 tablet PRN Reason: Pain, Moderate (4-6) Other Discharge Orders: Occupational Therapy (Amb) Location: None Selected
== END 2019-01-25 18:15 | disposition home health service (06) | DRG 300 ==
LOC: ED 18:47 → 4A 22:31
PROVIDERS: ADMIT Internal Medicine; ATTEND Internal Medicine
PROC: 30233N1 Transfusion of Nonautologous Red Blood Cells into Peripheral Vein, Percutaneous Approach (ICD-10-PCS; principal; 2019-01-24)
DX: E11.51 Type 2 diabetes mellitus with diabetic peripheral angiopathy without gangrene (principal); C92.00 Acute myeloblastic leukemia, not having achieved remission; D50.9 Iron deficiency anemia, unspecified; I10 Essential (primary) hypertension; E11.21 Type 2 diabetes mellitus with diabetic nephropathy; I16.0 Hypertensive urgency; N92.0 Excessive and frequent menstruation with regular cycle; E87.6 Hypokalemia; K21.9 Gastro-esophageal reflux disease without esophagitis; G89.29 Other chronic pain; Z88.6 Allergy status to analgesic agent; Z88.3 Allergy status to other anti-infective agents; Z88.8 Allergy status to other drugs, medicaments and biological substances; Z79.4 Long term (current) use of insulin; Z79.899 Other long term (current) drug therapy; Z90.49 Acquired absence of other specified parts of digestive tract
CPT/HCPCS: 36415; 70450; 70544; 70551; 71045; 80048; 80061; 81001; 82607; 82728; 82747; 82962; 83036; 83550; 84484; 85014; 85018; 85025; 85610; 85670; 85730; 86850; 86900; 86901; 86920; 87086; 93005; 93010; 93306; G0378; A9270-GY; J0360; J1815; J2270; J2405; J2916; J7030; P9040